=== PATIENT | male | born 1940 | race Caucasian/White ===

== ENCOUNTER 2020-02-25 08:53 | Outpatient (REF) | payer BC, MEDICARE, SELFPAY ==
[2020-02-25 11:51] LABS: Estimated Average Glucose 174 mg/dL; Hemoglobin A1c % 7.7 %
[2020-02-25 12:03] LABS: Alanine Aminotransferase 30 U/L (0-40); Alkaline Phosphatase 57 U/L (39-117); Anion Gap 13 (12-20); Aspartate Amino Transferase 28 U/L (5-37); Bilirubin Total 0.5 mg/dL (0.0-1.0); Blood Urea Nitrogen 21 mg/dL (9-16); Calcium 9.2 mg/dL (8.4-10.2); Carbon Dioxide 26 mmol/L (22-29); Chloride 107 mmol/L (96-108); Cholesterol 124 mg/dL; Estimated Glomerular Filt Rate > 60; Glucose Fasting 169 mg/dL (60-99); HDL Cholesterol 57 mg/dL; LDL Cholesterol Calculated 46 mg/dl; Potassium 4.5 mmol/l (3.3-5.1); Sodium 141 mmol/L (135-145); Total Protein 6.7 g/dL (6.5-8.0); Triglycerides 109 mg/dL
== END 2020-02-25 08:54 | disposition home or self-care (01) ==
LOC: HO.MANLR 08:53
PROVIDERS: PCP Internal Medicine; Visit Provider Internal Medicine
DX: E11.9 Type 2 diabetes mellitus without complications (principal)
CPT/HCPCS: 80053; 80061; 83036

== ENCOUNTER 2020-07-09 07:53 | Outpatient (REF) | payer BC, MEDICARE, SELFPAY ==
[2020-07-09 11:47] LABS: Estimated Average Glucose 157 mg/dL; Hemoglobin A1c % 7.1 %
[2020-07-09 11:51] LABS: Alanine Aminotransferase 29 U/L (0-40); Alkaline Phosphatase 55 U/L (39-117); Anion Gap 13 (12-20); Aspartate Amino Transferase 26 U/L (5-37); Bilirubin Total 1.1 mg/dL (0.0-1.0); Blood Urea Nitrogen 19 mg/dL (9-16); Calcium 9.3 mg/dL (8.4-10.2); Carbon Dioxide 25 mmol/L (22-29); Chloride 104 mmol/L (96-108); Cholesterol 116 mg/dL; Estimated Glomerular Filt Rate > 60; Glucose Fasting 157 mg/dL (60-99); HDL Cholesterol 61 mg/dL; LDL Cholesterol Calculated 34 mg/dl; Potassium 4.5 mmol/L (3.3-5.1); Sodium 137 mmol/L (135-145); Total Protein 6.8 g/dL (6.5-8.0); Triglycerides 105 mg/dL
[2020-07-09 13:39] LABS: Creatinine Urine 141.39 mg/dL; Microalbum/Creatinine Ratio Ur 9.9 ug/mg cr
== END 2020-07-09 07:54 | disposition home or self-care (01) ==
LOC: HO.MANLR 07:53
PROVIDERS: PCP Internal Medicine; Visit Provider Internal Medicine
DX: E11.9 Type 2 diabetes mellitus without complications (principal)
CPT/HCPCS: 36415; 80053; 80061; 82043; 83036

== ENCOUNTER 2020-10-15 09:07 | Outpatient (REF) | payer BC, MEDICARE, SELFPAY ==
[2020-10-15 11:15] LABS: Estimated Average Glucose 163 mg/dL; Hemoglobin A1c % 7.3 %
== END 2020-10-15 09:08 | disposition home or self-care (01) ==
LOC: HO.MANLR 09:07
PROVIDERS: PCP Internal Medicine; Visit Provider Internal Medicine
DX: E11.9 Type 2 diabetes mellitus without complications (principal)
CPT/HCPCS: 36415; 83036

== ENCOUNTER 2021-01-14 08:36 | Outpatient (REF) | payer BC, MEDICARE, SELFPAY ==
[2021-01-14 11:46] LABS: Estimated Average Glucose 166 mg/dL; Hemoglobin A1c % 7.4 %
[2021-01-14 12:06] LABS: Alanine Aminotransferase 24 U/L (0-40); Albumin Level 4.1 g/dL (3.5-5.0); Alkaline Phosphatase 61 U/L (39-117); Anion Gap 13 (12-20); Aspartate Amino Transferase 20 U/L (5-37); Bilirubin Total 1.1 mg/dL (0.0-1.0); Blood Urea Nitrogen 18 mg/dL (9-16); Calcium 9.8 mg/dL (8.4-10.2); Carbon Dioxide 28 mmol/L (22-29); Chloride 105 mmol/L (96-108); Cholesterol 124 mg/dL; Estimated Glomerular Filt Rate > 60; Glucose Fasting 164 mg/dL (60-99); HDL Cholesterol 62 mg/dL; LDL Cholesterol Calculated 38 mg/dl; Potassium 4.7 mmol/L (3.3-5.1); Sodium 141 mmol/L (135-145); Total Protein 6.9 g/dL (6.5-8.0); Triglycerides 123 mg/dL
[2021-01-14 12:14] LABS: Microalbum/Creatinine Ratio Ur 4.6 ug/mg cr
== END 2021-01-14 08:37 | disposition home or self-care (01) ==
LOC: HO.MANLDS 08:36
PROVIDERS: PCP Internal Medicine; Visit Provider Internal Medicine
DX: E11.9 Type 2 diabetes mellitus without complications (principal)
CPT/HCPCS: 36415; 80053; 80061; 82043; 83036

== ENCOUNTER 2021-06-10 11:01 | Outpatient (REF) | payer BC, MEDICARE, SELFPAY ==
[2021-06-10 13:34] LABS: Estimated Average Glucose 171 mg/dL; Hemoglobin A1c % 7.6 %
== END 2021-06-10 11:02 | disposition home or self-care (01) ==
LOC: HO.MANLDS 11:01
PROVIDERS: PCP Internal Medicine; Visit Provider Internal Medicine
DX: E11.9 Type 2 diabetes mellitus without complications (principal)
CPT/HCPCS: 36415; 83036

== ENCOUNTER 2021-11-18 08:39 | Outpatient (REF) | payer BC, MEDICARE, SELFPAY ==
[2021-11-18 11:41] LABS: Estimated Average Glucose 166 mg/dL; Hemoglobin A1c % 7.4 %
[2021-11-18 11:52] LABS: Alanine Aminotransferase 41 U/L (0-40); Albumin Level 3.8 g/dL (3.5-5.0); Alkaline Phosphatase 93 U/L (39-117); Anion Gap 12 (12-20); Aspartate Amino Transferase 32 U/L (5-37); Bilirubin Total 0.8 mg/dL (0.0-1.0); Blood Urea Nitrogen 18 mg/dL (9-16); Calcium 9.2 mg/dL (8.4-10.2); Carbon Dioxide 28 mmol/L (22-29); Chloride 104 mmol/L (96-108); Cholesterol 108 mg/dL; Estimated Glomerular Filt Rate 58; Glucose Random 162 mg/dL (60-115); HDL Cholesterol 49 mg/dL; LDL Cholesterol Calculated 39 mg/dl; Potassium 5.3 mmol/L (3.3-5.1); Sodium 139 mmol/L (135-145); Total Protein 6.7 g/dL (6.5-8.0); Triglycerides 100 mg/dL
[2021-11-18 12:03] LABS: Prostate Specific Antigen 3.54 ng/mL (<0.05-4.0)
[2021-11-18 12:37] LABS: Creatinine Urine 103.88 mg/dL; Microalbum/Creatinine Ratio Ur 5.7 ug/mg cr
== END 2021-11-18 08:40 | disposition home or self-care (01) ==
LOC: HO.MANLDS 08:39
PROVIDERS: Visit Provider Internal Medicine
DX: N40.0 Benign prostatic hyperplasia without lower urinary tract symptoms (principal); E11.9 Type 2 diabetes mellitus without complications; Z12.5 Encounter for screening for malignant neoplasm of prostate
CPT/HCPCS: 36415; 80053; 80061; 82043; 83036; 84153

== ENCOUNTER 2022-04-26 11:22 | Outpatient (REF) | payer BC, MEDICARE, SELFPAY ==
[2022-04-26 14:10] LABS: Estimated Average Glucose 174 mg/dL; Hemoglobin A1c % 7.7 %
[2022-04-26 14:18] LABS: Alanine Aminotransferase 19 U/L (0-40); Albumin Level 3.8 g/dL (3.5-5.0); Alkaline Phosphatase 87 U/L (39-117); Anion Gap 14 (12-20); Aspartate Amino Transferase 18 U/L (5-37); Bilirubin Total 0.7 mg/dL (0.0-1.0); Blood Urea Nitrogen 21 mg/dL (9-16); Calcium 9.8 mg/dL (8.4-10.2); Carbon Dioxide 28 mmol/L (22-29); Chloride 100 mmol/L (96-108); Estimated Glomerular Filt Rate > 60; Glucose Random 243 mg/dL (60-115); Sodium 137 mmol/L (135-145); Total Protein 6.7 g/dL (6.5-8.0)
== END 2022-04-26 11:23 | disposition home or self-care (01) ==
LOC: HO.MANLDS 11:22
PROVIDERS: Visit Provider Internal Medicine
DX: E11.9 Type 2 diabetes mellitus without complications (principal)
CPT/HCPCS: 36415; 80053; 83036

== ENCOUNTER 2022-07-12 08:44 | Outpatient (REF) | payer BC, MEDICARE, SELFPAY ==
[2022-07-12 11:13] LABS: Estimated Average Glucose 177 mg/dL; Hemoglobin A1c % 7.8 %
[2022-07-12 11:43] LABS: Creatinine Urine 140.69 mg/dL; Microalbum/Creatinine Ratio Ur 4.9 ug/mg cr
[2022-07-12 11:45] LABS: Alanine Aminotransferase 32 U/L (0-40); Albumin Level 3.9 g/dL (3.5-5.0); Alkaline Phosphatase 61 U/L (39-117); Anion Gap 12 (12-20); Aspartate Amino Transferase 29 U/L (5-37); Bilirubin Total 0.9 mg/dL (0.0-1.0); Blood Urea Nitrogen 23 mg/dL (9-16); Calcium 9.7 mg/dL (8.4-10.2); Carbon Dioxide 29 mmol/L (22-29); Chloride 104 mmol/L (96-108); Cholesterol 124 mg/dL; Estimated Glomerular Filt Rate > 60; Glucose Fasting 175 mg/dL (60-99); HDL Cholesterol 55 mg/dL; LDL Cholesterol Calculated 48 mg/dl; Potassium 4.4 mmol/L (3.3-5.1); Sodium 141 mmol/L (135-145); Total Protein 6.5 g/dL (6.5-8.0); Triglycerides 108 mg/dL
[2022-07-12 12:15] LABS: Prostate Specific Antigen 3.86 ng/mL (<0.05-4.0)
== END 2022-07-12 08:45 | disposition home or self-care (01) ==
LOC: HO.MANLDS 08:44
PROVIDERS: Visit Provider Internal Medicine
DX: Z12.5 Encounter for screening for malignant neoplasm of prostate (principal); E11.9 Type 2 diabetes mellitus without complications
CPT/HCPCS: 36415; 80053; 80061; 82043; 83036; 84153

== ENCOUNTER 2022-09-22 09:15 | Outpatient (REF) | payer BC, MEDICARE, SELFPAY ==
[2022-09-22 12:41] LABS: Estimated Average Glucose 163 mg/dL; Hemoglobin A1c % 7.3 %
== END 2022-09-22 09:16 | disposition home or self-care (01) ==
LOC: HO.MANLDS 09:15
PROVIDERS: Visit Provider Internal Medicine
DX: E11.9 Type 2 diabetes mellitus without complications (principal)
CPT/HCPCS: 36415; 83036

== ENCOUNTER 2023-01-12 09:04 | Outpatient (REF) | payer BC, MEDICARE, SELFPAY ==
[2023-01-12 13:05] LABS: MANUAL DIFF FLAG NO
[2023-01-12 13:26] LABS: Basophils Percent Auto 1.1 % (0-2); Eosinophils Absolute Auto 0.2 X10*3/uL (0.0-0.4); Eosinophils Percent Auto 5.9 % (0-4); Hematocrit 38.7 % (42.0-52.0); Hemoglobin 12.3 g/dl (14.0-18.0); Imm Gran Abs Auto 0.04 X10*3/uL (0.00-0.03); Imm Gran Pct Auto 1.1 % (0.0-0.4); Lymphocytes Percent Auto 27.8 % (20-40); Mean Corpuscular HGB Conc 31.8 g/dl (31.0-36.0); Mean Corpuscular Hemoglobin 31.5 pg (27.0-33.0); Mean Corpuscular Volume 99.2 fL (80.0-98.0); Mean Platelet Volume 10.2 fL (9.4-12.4); Monocytes Absolute Auto 0.4 X10*3/uL (0.1-1.2); Monocytes Percent Auto 11.3 % (2-11); Neutrophils Percent Auto 52.8 % (45-73); Platelet Count 285 X10*3/uL (160-400); Red Cell Distribution Width 19.9 % (11.0-16.0); White Blood Count 3.7 X10*3/uL (4.8-10.8)
[2023-01-12 13:34] LABS: Estimated Average Glucose 105 mg/dL; Hemoglobin A1c % 5.3 % (<6.0)
[2023-01-12 13:48] LABS: Alanine Aminotransferase 33 U/L (0-40); Albumin Level 3.8 g/dL (3.5-5.0); Alkaline Phosphatase 100 U/L (39-117); Anion Gap 15 (12-20); Aspartate Amino Transferase 29 U/L (5-37); Bilirubin Total 0.8 mg/dL (0.0-1.0); Blood Urea Nitrogen 17 mg/dL (9-16); Calcium 9.7 mg/dL (8.4-10.2); Carbon Dioxide 25 mmol/L (22-29); Chloride 104 mmol/L (96-108); Estimated Glomerular Filt Rate > 60; Glucose Random 276 mg/dL (60-115); Potassium 4.3 mmol/L (3.3-5.1); Sodium 140 mmol/L (135-145); Total Protein 6.9 g/dL (6.5-8.0)
== END 2023-01-12 09:05 | disposition home or self-care (01) ==
LOC: HO.MANLDS 09:04
PROVIDERS: Visit Provider Internal Medicine
DX: B60.01 Babesiosis due to Babesia microti (principal); E11.9 Type 2 diabetes mellitus without complications
CPT/HCPCS: 36415; 80053; 83036; 85025

== ENCOUNTER 2023-04-11 08:34 | Outpatient (REF) | payer BC, MEDICARE, SELFPAY ==
[2023-04-11 14:10] LABS: Estimated Average Glucose 200 mg/dL; Hemoglobin A1c % 8.6 % (<6.0)
[2023-04-11 14:36] LABS: Alanine Aminotransferase 35 U/L (0-40); Albumin Level 3.9 g/dL (3.5-5.0); Alkaline Phosphatase 74 U/L (39-117); Anion Gap 13 (12-20); Aspartate Amino Transferase 39 U/L (5-37); Bilirubin Total 0.9 mg/dL (0.0-1.0); Blood Urea Nitrogen 21 mg/dL (9-16); Calcium 9.8 mg/dL (8.4-10.2); Carbon Dioxide 25 mmol/L (22-29); Chloride 106 mmol/L (96-108); Cholesterol 136 mg/dL (<200); Estimated Glomerular Filt Rate > 60; Glucose Random 163 mg/dL (60-115); HDL Cholesterol 60 mg/dL (>40); LDL Cholesterol Calculated 54 mg/dL (<100); Potassium 3.9 mmol/L (3.3-5.1); Sodium 140 mmol/L (135-145); Triglycerides 110 mg/dL (<150)
== END 2023-04-11 08:35 | disposition home or self-care (01) ==
LOC: HO.MANLDS 08:34
PROVIDERS: Visit Provider Internal Medicine
DX: E11.9 Type 2 diabetes mellitus without complications (principal)
CPT/HCPCS: 36415; 80053; 80061; 83036

== ENCOUNTER 2023-08-01 08:54 | Outpatient (REF) | payer BC, MEDICARE, SELFPAY ==
[2023-08-01 13:48] LABS: Estimated Average Glucose 183 mg/dL
[2023-08-01 14:32] LABS: Alanine Aminotransferase 32 U/L (0-40); Albumin Level 3.9 g/dL (3.5-5.0); Alkaline Phosphatase 69 U/L (39-117); Anion Gap 12 (12-20); Aspartate Amino Transferase 28 U/L (5-37); Bilirubin Total 0.8 mg/dL (0.0-1.0); Blood Urea Nitrogen 20 mg/dL (9-16); Calcium 9.6 mg/dL (8.4-10.2); Carbon Dioxide 27 mmol/L (22-29); Chloride 105 mmol/L (96-108); Cholesterol 132 mg/dL (<200); Estimated Glomerular Filt Rate > 60; Glucose Random 187 mg/dL (60-115); HDL Cholesterol 60 mg/dL (>40); LDL Cholesterol Calculated 50 mg/dL (<100); Potassium 3.9 mmol/L (3.3-5.1); Sodium 140 mmol/L (135-145); Total Protein 6.7 g/dL (6.5-8.0); Triglycerides 114 mg/dL (<150)
== END 2023-08-01 08:55 | disposition home or self-care (01) ==
LOC: HO.MANLDS 08:54
PROVIDERS: Visit Provider Internal Medicine
DX: E11.9 Type 2 diabetes mellitus without complications (principal)
CPT/HCPCS: 36415; 80053; 80061; 83036

== ENCOUNTER 2023-10-19 08:40 | Outpatient (REF) | payer BC, MEDICARE, SELFPAY ==
[2023-10-19 13:50] LABS: Estimated Average Glucose 200 mg/dL; Hemoglobin A1c % 8.6 % (<6.0)
== END 2023-10-19 08:41 | disposition home or self-care (01) ==
LOC: HO.MANLDS 08:40
PROVIDERS: Visit Provider Internal Medicine
DX: E11.9 Type 2 diabetes mellitus without complications (principal)
CPT/HCPCS: 36415; 83036

== ENCOUNTER 2024-03-13 09:40 | Outpatient (REF) | payer BC, MEDICARE, SELFPAY ==
[2024-03-13 13:58] LABS: Estimated Average Glucose 186 mg/dL; Hemoglobin A1C 237.1569 umol/L; Hemoglobin A1c % 8.1 % (<6.0); Total Hemoglobin (HGBA1C) 3633.1273 umol/L
== END 2024-03-13 09:41 | disposition home or self-care (01) ==
LOC: HO.MANLDS 09:40
PROVIDERS: Visit Provider Internal Medicine
DX: E11.9 Type 2 diabetes mellitus without complications (principal)
CPT/HCPCS: 36415; 83036

== ENCOUNTER 2024-08-29 11:51 | Outpatient (REF) | payer BC, MEDICARE, SELFPAY ==
[2024-08-29 13:51] LABS: Estimated Average Glucose 209 mg/dL; Hemoglobin A1C 291.1274 umol/L; Hemoglobin A1c % 8.9 % (<6.0); Total Hemoglobin (HGBA1C) 3950.9875 umol/L
--- OUTSIDE RECORDS SUMMARY | 2024-08-29 14:20 | XMS_ITS | Clinical Summary ---
Author Organization [facility] ity Address [address] [place] [address] Care Team Providers Care Check Inspector Name Role Phone Samson Trinidad DO Primary Care Provider [phone] Medications isosorbide mononitrate (IMDUR) 30 mg 24 hr tablet Take 1 tablet (30 mg total) by mouth 1 (one) time each day. 90 tablet 2 07/27/2024 Active Encounters Date Type Department Care Team Description 07/27/2024 Telephone [facility] [address] [place] [address] Ben Lucero MD refill isosorbide (Refill isosorbide) from Last 3 Months Medical History Medical History Date Comments Multiple actinic keratoses DX:Mu ltiple actinic keratoses Vertigo DX:Vertigo History of tobacco use DX:Histor y of tobacco use BPH (benign prostatic hyperplasia) DX:BPH (benign prostatic hyperplasia) Ulcer of toe (CMS/HCC V24, CMS/HCC V28) DX:Ulcer of toe (HCC) Eczema DX:Eczema Type 2 diabetes mellitus (CM S/HCC V24, CMS/HCC V28) DX:Type 2 diabetes mellitus (HCC) Primary erectile dysfunction DX: Primary erectile dysfunction Family History Medical History Relation Name Comments CABG Brother Relation Name Status Comments Brother Social History Tobacco Use Types Packs/Day Years Used Date Smoking Tobacco: Former Smokeless Tobacco: Never Alcohol Use Standard Drinks/Week Comments Yes 0 (1 standard drink = 0.6 oz pur e alcohol) Sex and Gender Information Value Date Recorded Sex Assigned at Not on file Legal Sex Male 7:46 AM EST Gender Identity Not on file Sexual Orientation Not on file Obstetrics History Last Filed Vital Signs Vital Sign Reading Time Taken Comments Blood Pressure 102/62 02/07/2024 1:29 PM EDT Sitting L Arm Pulse 47 02/07/2024 1:29 PM EDT Temperature - - Respiratory Rate - - Oxygen Saturation - - Inhaled Oxygen Concentration - - Weight 102 kg (224 lb 8 oz) 02/07/2024 1:29 PM EDT Height 190.5 cm (6' 3 ) 02/07/2024 1:29 PM EDT Body Mass Index 28.06 02/07/2024 1:29 PM EDT Plan of Treatment Upcoming Encounters Date Type Department Care Team (Late st Contact Info) Description 02/26/2025 1:30 PM EDT Office Visit [facility] [address] [facility] [address] [place] [id number] Ben Lucero MD [address] [place] [address],[address] [place] [address] Health Maintenance Due Date Last Done Comments COVID-19 Vaccine (#1) 07/29/1945 DTaP,Tdap,and Td Vaccines (1 - Tdap) 1961 Zoster Vaccines (1 of 2) 1992 RSV Immunization Adult Patients (1 - 1-dose 75+ series) 2017 Pneumococcal Vaccine: 50+ Years (2 of 2 - PCV) 02/03/2018 02/03/2017 Cholesterol Screening (Lipid Panel) 04/18/2022 Depression Screening 04/18/2022 Falls Risk Assessment 04/18/2022 Medicare Annual Wellness Visit 04/18/2022 Social Influencers of Health Screening 04/18/2022 Hypertension/CHF/CAD Annual BMP Blood Test 04/22/2022 Influenza Vaccine (Season Ended) 2025 05/07/2021, 01/27/2019, 02/03/2017 HIB Vaccines Aged Out No longer eligi ble based on patient's age to complete this topic HPV Vaccines Aged Out No longer eligi ble based on patient's age to complete this topic Hepatitis A Vaccines Aged Out No long er eligible based on patient's age to complete this topic Hepatitis B Vaccines Aged Out No long er eligible based on patient's age to complete this topic IPV Vaccines Aged Out No longer eligi ble based on patient's age to complete this topic MMR Vaccines Aged Out No longer eligi ble based on patient's age to complete this topic Meningococcal ACWY Vaccine Aged Out N o longer eligible based on patient's age to complete this topic Meningococcal B Vaccine Aged Out No l onger eligible based on patient's age to complete this topic RSV Immunization Patients Under 20 months Aged Out No longer eligible b ased on patient's age to complete this topic Varicella Vaccines Aged Out No longer eligible based on patient's age to complete this topic Insurance MEDICARE Care Teams Check Inspector Relationship Specialty Start Date End Date Samson Trinidad DO [address] [facility] [address] [place], [place] PCP - General 05/31/13
--- OUTSIDE RECORDS SUMMARY | 2024-08-29 14:21 | XMS_ITS | Data Portability ---
Author Organization [facility], , [facility] Address [address] [place] [address] Care Team Providers Care Singing Messenger Name Role Phone SOPHIE ALEMAN MD OTHER [phone] SOPHIE BETHEA OTHER Assessment Encounter Date Assessment Date Assessment LastModified by Organization Details LastModified Time 10/31/2008 10/31/2008 LDL not at goal of less than 100, declines treatment Not available 12/07/2010 03:15:02 11/04/2008 11/04/2008 Study: Abdominal aorta screening ultrasound Comparison: None Findings: The abdominal aorta is non-aneurysma l, maximum cross-section al diameters tapering from? ? ? 2.4? ? ?cm proximally to 1.8 cm distally. Impression: Non-aneurysma l abdominal aorta. Not available 01/20/2011 02:20:11 Plan of Treatment Reminders Order Date Submit Date Provider Last Modified By Organization Details Last Modified Time Details Appointments None recorded. Lab PSA, total 2008 009 [facility], [address] [place] [address], [address], 3 03:26:39 CBC 2008 009 [facility], [address] [place] [address], [address], 3 03:26:40 Referral None recorded. Procedures None recorded. Surgeries None recorded. Imaging electrocard iogram 2008 009 [facility], [address] [place] [address], [address], 3 03:26:39 ultrasound, abdominal aorta - screening 2008 009 [facility], [address] [place], [address], 3 03:26:39 ultrasound, leg - r/o DVT 2008 009 [facility], [address] [place], [address], 3 03:17:32 Medication Orders aspirin 81 mg tablet 2008 009 [id number], [address] [place], [place], [phone], 3 03:26:40 Cialis 20 mg tablet 2008 009 [id number], [address], [place], [phone], 3 03:26:40 Patient TargetsNo targets recorded. Patient Instructions Encounter Date Encounter Id Patient Instructions Last Modified By Organization Details Last Modified Time 08/08/2008 [id number] Not available 12/07/2010 03:06:54 10/31/2008 [id number] [email or web address] [id number] Not available 12/07/2010 02:52:03 Reason for Referral None Reported. Results Created Date Observation Date Name Description Value Unit Range Abnormal Flag Note LastModifiedBy Organization Detail LastModifiedTime 11/01/1910/31/2008 elect marco diogr am Result Sinus bradyc ardia, WNL Not Available [address], [address], 10/31/2008 10:21:14 07/16/19 09 07/15/2008 hemog lobin A1C w/ mpg hemoglobin A1C 6.9 % 4.8-6. 0 high goal: <7% in patie nts with diabe rahul Not Available [address], [address], 07/15/2008 11:56:19 07/16/19 09 07/15/2008 hemog lobin A1C w/ mpg estimated average glucose 151.3 mg/dL Not Available [address], [address], 07/15/2008 11:56:19 07/16/19 09 07/15/2008 lipid panel cholesterol 231 mg/dL <200 mg/dL doc eable 200-2 39 mg/dL borde rline high >240 mg/dL high Not Available [address], [address], 07/15/2008 12:52:54 07/16/19 09 07/15/2008 lipid panel triglyceride s 329 mg/dL <150 mg/dL izzy l 150-1 99 mg/dL borde rline high 200-4 99 mg/dL high >500 mg/dL very high Not Available [address], [address], 07/15/2008 12:52:54 07/16/19 09 07/15/2008 lipid panel direct HDL 48 mg/dL <40 mg/dL - major risk for CHD >60 mg/dL - negat alberto risk for CHD Not Available [address], [address], 07/15/2008 12:52:54 07/16/19 09 07/15/2008 lipid panel direct LDL 137 mg/dL risk categ ory LDL goal _ CHD or CHD risk equiv alent s <100 mg/dL (10-y ear risk >20%) 2+ risk facto rs <130 mg/dL (10-y ear risk <= 20%) 0-1 risk facto r? <160 mg/dL ? almos t all peopl e with 0-1 risk facto r have A 10 year risk <10%, thus 10 year risk asses ment in peopl e with 0-1 risk facto r IS not neces elisabet. Not Available [address], [address], 07/15/2008 12:52:54 10/23/19 09 10/22/2008 hemog lobin A1C w/ mpg hemoglobin A1C 6.8 % 4.8-6. 0 high goal: <7% in patie nts with diabe rahul Not Available [address], [address], 10/22/2008 11:56:55 10/23/19 09 10/22/2008 hemog lobin A1C w/ mpg estimated average glucose 148.5 mg/dL Not Available [address], [address], 10/22/2008 11:56:55 10/23/19 09 10/22/2008 lipid panel cholesterol 220 mg/dL <200 mg/dL doc eable 200-2 39 mg/dL borde rline high >240 mg/dL high Not Available [address], [address], 10/22/2008 12:20:03 10/23/19 09 10/22/2008 lipid panel triglyceride s 314 mg/dL <150 mg/dL izzy l 150-1 99 mg/dL borde rline high 200-4 99 mg/dL high >500 mg/dL very high Not Available [address], [address], 10/22/2008 12:20:03 10/23/19 09 10/22/2008 lipid panel direct HDL 50 mg/dL <40 mg/dL - major risk for CHD >60 mg/dL - negat alberto risk for CHD Not Available [address], [address], 10/22/2008 12:20:03 10/23/19 09 10/22/2008 lipid panel direct LDL 128 mg/dL risk categ ory LDL goal _ CHD or CHD risk equiv alent s <100 mg/dL (10-y ear risk >20%) 2+ risk facto rs <130 mg/dL (10-y ear risk <= 20%) 0-1 risk facto r? <160 mg/dL ? almos t all peopl e with 0-1 risk facto r have A 10 year risk <10%, thus 10 year risk asses ment in peopl e with 0-1 risk facto r IS not dom bhandari. Not Available [address], [address], 10/22/2008 12:20:03 10/23/19 09 10/22/2008 basic metab olic panel glucose 143 mg/dL 70-100 high clini avel refer ence range s fasti ng gluco se <100 mg/dL = izzy l fasti ng gluco se; 100-1 25 mg/dL = ifg (impa ired fasti ng gluco se); >126 mg/dL = provi siona l diagn osis of diabe rahul (conf irm by repea t testi ng on A .) Not Available [address], [address], 10/22/2008 12:20:04 10/23/19 09 10/22/2008 basic metab olic panel BUN 16 mg/dL 7-18 Not Available [address], [address], 10/22/2008 12:20:04 10/23/19 09 10/22/2008 basic metab olic panel creatinine 1.1 mg/dL 0.8-1. 3 Not Available [address], [address], 10/22/2008 12:20:04 10/23/19 09 10/22/2008 basic metab olic panel B/C 14.5 ratio Not Available [address], [address], 10/22/2008 12:20:04 10/23/19 09 10/22/2008 basic metab olic panel GFR 71.2 mL/mi n recom torey d GFR by the natio nal kidne y found ation >60 mL/mi n/1.7 3M2 - izzy l <60 mL/mi n/1.7 3M2 - chron ic kidne y disea se <15 mL/mi n/1.7 3M2 - kidne y failu re Not Available [address], [address], 10/22/2008 12:20:04 10/23/19 09 10/22/2008 basic metab olic panel GFR - if 86.1 mL/mi n for afric an ameri can patie nts: resul ts multi plied by 1.21 Not Available [address], [address], 10/22/2008 12:20:04 10/23/19 09 10/22/2008 basic metab olic panel sodium 142 mmol/ L 136-14 5 Not Available [address], [address], 10/22/2008 12:20:04 10/23/19 09 10/22/2008 basic metab olic panel potassium 4.6 mmol/ L 3.5-5. 1 Not Available [address], [address], 10/22/2008 12:20:04 10/23/19 09 10/22/2008 basic metab olic panel chloride 103 mmol/ L 96-107 Not Available [address], [address], 10/22/2008 12:20:04 10/23/19 09 10/22/2008 basic metab olic panel _anion gap 12.0 Not Available [address], [address], 10/22/2008 12:20:04 10/23/19 09 10/22/2008 basic metab olic panel CO2 27 mmol/ L 21-32 Not Available [address], [address], 10/22/2008 12:20:04 10/23/19 09 10/22/2008 basic metab olic panel calcium 8.8 mg/dL 8.5-10 .3 Not Available [address], [address], 10/22/2008 12:20:04 10/23/19 09 10/22/2008 micro album in, rando m urine microalbumin 6.8 mg/L 1.3-20 .0 Not Available [address], [address], 10/22/2008 13:54:57 10/23/19 09 10/22/2008 micro album in, rando m urine creatinine, urine 137.2 mg/dL 30.0-1 25.0 high Not Available [address], [address], 10/22/2008 13:54:57 10/23/19 09 10/22/2008 micro album in, rando m urine microalb/cre at ratio 5.0 mg/g_ creat 0.0-29 .0 Not Available [address], [address], 10/22/2008 13:54:57 12/18/19 09 12/18/2008 CBC WBC 4.6 K/?L 4.6-10 .2 Not Available [address], [address], 12/18/2008 08:44:34 12/18/19 09 12/18/2008 CBC lymph # 1.7 K/?L 0.6-3. 4 Not Available [address], [address], 12/18/2008 08:44:34 12/18/19 09 12/18/2008 CBC mid # 0.5 K/?L 0.0-1. 8 Not Available [address], [address], 12/18/2008 08:44:34 12/18/1912/18/2008 CBC gran # 2.5 K/?L 2.0-6. 9 Not Available [address], [address], 12/18/2008 08:44:34 12/18/1912/18/2008 CBC lymph % 36.3 % 10.0-5 0.0 Not Available [address], [address], 12/18/2008 08:44:34 12/18/1912/18/2008 CBC mid % 10.4 % 0.1-24 .0 Not Available [address], [address], 12/18/2008 08:44:34 12/18/1912/18/2008 CBC gran % 53.3 % 37.0-8 0.0 Not Available [address], [address], 12/18/2008 08:44:34 12/18/1912/18/2008 CBC RBC 4.69 M/?L 4.69-6 .13 Not Available [address], [address], 12/18/2008 08:44:34 12/18/1912/18/2008 CBC HGB 15.0 g/dL 14.1-1 8.1 Not Available [address], [address], 12/18/2008 08:44:34 12/18/1912/18/2008 CBC HCT 43.4 % 43.5-5 3.7 low Not Available [address], [address], 12/18/2008 08:44:34 12/18/1912/18/2008 CBC MCV 92.5 ?L 80.0-9 7.0 Not Available [address], [address], 12/18/2008 08:44:34 12/18/19 09 12/18/2008 CBC MCH 32.0 pg 27.0-3 1.2 high Not Available [address], [address], 12/18/2008 08:44:34 12/18/19 09 12/18/2008 CBC MCHC 34.6 g/dL 31.8-3 5.4 Not Available [address], [address], 12/18/2008 08:44:34 12/18/19 09 12/18/2008 CBC plt 214.0 K/?L 142.0- 424.0 Not Available [address], [address], 12/18/2008 08:44:34 12/18/19 09 12/18/2008 CBC RDW 14.3 % 11.6-1 4.8 Not Available [address], [address], 12/18/2008 08:44:34 12/18/19 09 12/18/2008 CBC _MPV 0.0 Not Available [address], [address], 12/18/2008 08:44:34 12/18/19 09 12/20/2008 PSA, total PSA 4.67 NG/mL 0.00-4 .00 high Not Available [address], [address], 12/20/2008 07:19:41 08/10/19 09 08/08/2008 ultra sound , leg No observ ation record ed. [address], [address], 12/01/2012 03:17:40 11/06/19 09 11/04/2008 ultra sound , abdom inal aorta No observ ation record ed. [address], [address], 12/01/2012 03:27:05 Result Notes None recorded. Problems Name Problem SNOMED Code Status Onset Date Resolution Date Notes Provider Name and Address Organization Details Recorded Time Mixed hyperlipid emia 823218378 Active 2001 Not Available [facility] 3 03:08:44 Impotence of organic origin Active 2007 Not Available [facility] 3 03:08:44 Edema of extremity 213519958 Completed 03/28/2013 Not Available [facility] 3 02:02:54 Contusion, knee and lower leg 668259276 Active Not Available [facility] 3 03:08:44 Type 2 diabetes mellitus without complicati on 728573798 Active 2000 Not Available [facility] 3 03:08:44 Elevated blood-pres sure reading without diagnosis of hypertensi on 310296267 Active 2002 Not Available [facility] 3 03:08:44 Morbid obesity 912526143 Active 2000 Not Available [facility] 3 03:08:44 Uncontroll ed type 2 diabetes mellitus 559025112 Active 2004 Not Available [facility] 3 03:08:44 Hyperlipid emia 65784391 Active 2006 Not Available [facility] 3 03:08:44 Benign prostatic hyperplasi a 920141492 Active 2007 Not Available [facility] 3 03:08:44 Problem Notes None recorded. Procedures Surgical History None recorded. Imaging Results Imaging Date Name Status LastModified by Organiz ation Details LastModified Time 08/08/2008 ultrasound, leg completed [facility] [address] [place], [address], 12/01/2012 03:17:40 11/04/2008 ultrasound, abdominal aorta completed [address] [place], [address], 12/01/2012 03:27:05 Procedure Notes None recorded. Medical Equipment None Reported. Allergies No known drug allergies Medications Name Sig Start Date Stop Date Status Note LastModified by Organization Details LastModified Time lancets 007 active Take 1.00 ea as directed Not Available Not Available Not Available aspirin 81 mg tablet Take 1 tablet every day by oral route. 009 active Not Available Not Available Not Avai lable Baby Aspirin 81 mg chewable tablet 007 active Take 1.00 tabs every day Not Available Not Available Not Available One Touch Test strips 007 active Take 1.00 strips as directed as needed Not Available Not Available Not Available Fish Oil 500 mg capsule 007 active Take 1.00 caps every day Not Available Not Available Not Available Centrum 0.4 mg-162 mg-18 mg tablet 007 active Take 1.00 tabs every day Not Available Not Available Not Available Cialis 20 mg tablet Take 1 tablet every day by oral route as directed . 009 active Not Available Not Available Not Avai lable Vitals Date Recorded Body weight Heart rate Systolic blood pressure Diastolic blood pressure Provider Name and Address Organization Details Last Updated DateTime 08/08/2008 456992.60 857 g 76 /min 96 mm[Hg] 64 mm[Hg] Rita Liu CMA(AAMA) [facility] 08/08/2008 14:39:24 Date Recorded Body height Body weight Body mass index (BMI) Heart rate Systolic blood pressure Diastolic blood pressure Provider Name and Address Organization Details Last Updated DateTime 9 187.96 cm 770738. 776534 g 33.1 kg/m2 76 /min 138 mm[Hg] 70 mm[Hg] Emelia Turcios LPN [facility] 9 10:27:36 Social History Question Answer Notes LastModified by Organizat ion Details LastModified Time Tobacco Smoking Status Former Smoker QUIT 10 YRS AGO SMOKED 1 PPD Not Available [facility] 10/01/2010 02:07:41 Do You Have An Advance Directive? Yes Information not available 03/25/2011 Sex: Unknown Functional Status None recorded. Mental Status None recorded. Family History Nothing Reported Notes:Father: 91 old ag e Brother: DM, Etoh Dtr: crohn's : Medical History No medical history recorded. Immunizations Vaccine Type Date Status Note Provider Nam e and Address Organization Details Recorded Time influenza, unspecified formulation 1 completed Not Available [facility] 03/24/2011 05:20:34 influenza, unspecified formulation 4 completed Not Available [facility] 03/24/2011 05:21:07 influenza, unspecified formulation 5 completed Not Available [facility] 03/24/2011 05:23:04 Tdap 7 completed Not Available [facility] 03/24/2011 05:23:04 pneumococcal polysaccharide PPV23 8 completed Not Available [facility] 03/24/2011 05:21:55 influenza, unspecified formulation 8 completed Not Available [facility] 03/24/2011 05:22:13 Past Encounters Encounter ID Performer Location Encounter Start Date Encounter Closed Date Diagnosis/Indication Diagnosis SNOMED-CT Code Diagnosis ICD10 Code Diagnosis Note [id number] [facility], OFFICE [address] [place] [address] 02/01/2001 11:00:00 05/29/2008 02:02:29 [id number] [facility], OFFICE [address] [place] [address] 02/09/2001 10:15:00 05/29/2008 02:02:29 [id number] [facility], OFFICE [address] [place] [address] 03/24/2001 09:45:00 05/29/2008 02:02:29 [id number] [facility], OFFICE [address] [place] [address] 04/26/2002 11:08:09 05/29/2008 02:02:29 [id number] [facility], OFFICE [address] [place] [address] [place] [address] 10/16/2002 16:35:33 05/29/2008 02:02:29 [id number] [facility], OFFICE [address] [place] [address] 06/12/2003 10:03:19 06/13/2003 16:09:07 [id number] [facility], OFFICE [address] [place] [address] 12/25/2003 10:57:11 12/27/2003 17:37:25 [id number] [facility], OFFICE [address] [place] [address] 03/05/2004 16:32:24 03/05/2004 16:32:29 [id number] [facility], OFFICE [address] [place] [address] 07/31/2004 13:28:21 08/03/2004 09:21:01 [id number] [facility], OFFICE [address] [place] [address] 02/26/2005 11:35:11 03/02/2005 09:35:38 [id number] [facility], OFFICE [address] [place] [address] 08/17/2005 16:05:05 08/18/2005 15:12:46 [id number] [facility], OFFICE [address] [place] [address] 12/16/2005 11:40:55 12/17/2005 09:22:04 [id number] [facility], OFFICE [address] [place] [address] 09/14/2006 11:23:13 09/15/2006 07:41:34 [id number] [facility] - [facility] [address] [place] [address] [place] [address] 03/27/2007 09:01:50 03/27/2007 09:02:02 [id number] [facility], OFFICE [address] [place] [address] [place] [address] 04/18/2007 11:30:34 05/29/2008 02:02:29 [id number] [facility] [address] [place] [address] [place] [address] 05/16/2007 13:58:16 05/16/2007 14:07:12 [id number] [facility] [address] [place] [address] [place] [facility] [place] [address] 09/14/2007 07:46:30 09/14/2007 07:58:40 [id number] [facility], OFFICE [address] [place] [address] [place] [address] 09/26/2007 09:30:54 05/29/2008 02:02:29 [id number] LAB - [facility] [address] [facility] [place] [facility] [place] [address] 03/13/2008 08:38:43 03/13/2008 08:39:52 [id number] , [facility], OFFICE [address] [facility] [place] [facility] [place] [address] 03/28/2008 08:56:39 05/29/2008 02:02:29 [id number] [facility], OFFICE [address] [facility] [place] [facility] [place] [address] 08/08/2008 14:31:17 08/15/2008 08:51:03 [id number] Radiology , [facility] [address] [place] [address] 08/08/2008 15:38:22 08/09/2008 14:14:52 [id number] , [facility], OFFICE [address] [place] [address] [place] [facility] [place] [address] 10/31/2008 09:35:06 11/07/2008 08:53:05 [id number] Radiology , [facility] [address] [place] [address] 11/04/2008 09:42:24 11/07/2008 07:52:56 [id number] [facility] - [address] [place] [facility] [place] [address] 07/15/2008 08:37:32 07/15/2008 08:38:46 [id number] [facility] - [address] [place] [facility] [place] [address] 10/22/2008 07:19:06 10/22/2008 07:27:31 [id number] [facility] - [address] [place] [facility] [place] [address] 12/17/2008 14:24:52 12/17/2008 14:35:26 Health Concerns Section Related Observation LastModified by Organization Detai ls LastModified Time None Recorded Concern Status LastModified by Organization Details LastModified Time None Recorded Advance Directives Directive Y: Payers Encounter Date Sequence Insurance Name Policy Number Policy Anne Covered Member ID Anne Member ID Guarantor Name 08/08/2008 1 [place]: [employer] Bryson Hernandez [id number] Bryson Hernandez 10/22/2008 1 MEDICARE [place]: [facility] [employer] Bryson Hernandez [id number] Bryson Hernandez 10/31/2008 1 [place]: [employer] Bryson Hernandez [id number] Bryson Hernandez 11/04/2008 1 [place] [facility] GOVERNMENT SERVICES Bryson Hernandez [id number] Bryson Hernandez 12/17/2008 1 [place] [facility] GOVERNMENT SERVICES Bryson Hernandez [id number] Bryson Hernandez
== END 2024-08-29 11:52 | disposition home or self-care (01) ==
LOC: HO.MANLDS 11:51
PROVIDERS: Visit Provider Internal Medicine
DX: E11.9 Type 2 diabetes mellitus without complications (principal)
CPT/HCPCS: 36415; 83036

== ENCOUNTER 2024-09-04 08:19 | Outpatient (REF) | payer BC, MEDICARE, SELFPAY ==
--- OUTSIDE RECORDS SUMMARY | 2024-09-04 08:34 | XMS_ITS | Clinical Summary ---
Author Organization [facility] ity Address [address] [place] [address] Care Team Providers Care Supervisor [employer] Name Role Phone Samson Trinidad DO Primary Care Provider [phone] Medications isosorbide mononitrate (IMDUR) 30 mg 24 hr tablet Take 1 tablet (30 mg total) by mouth 1 (one) time each day. 90 tablet 2 07/27/2024 Active Encounters Date Type Department Care Team Description 07/27/2024 Telephone [facility] [address] [place] [address] Ben Lucero MD refill isosorbide [...] Description 02/26/2025 1:30 PM EDT Office Visit [facility] [address] [place] [id number] Ben Lucero MD [address] [place] [address],[address] [place] [address] Health Maintenance Due Date Last Done Comments [...] complete this topic Insurance MEDICARE Care Teams Supervisor [employer] Relationship Specialty Start Date End Date Samson Trinidad DO [address] [facility] [address] [place], [place] PCP - General 05/31/13
--- OUTSIDE RECORDS SUMMARY | 2024-09-04 08:34 | XMS_ITS | Data Portability ---
Author Organization [facility] Home Service Address [address] [place] [address] Assessment Encounter Date Assessment Date Assessment LastModified by Organization Details LastModified Time 04/20/2023 04/20/2023 [id number] [place] [id number] (INSEAMER) [facility] MODERATE MUST MEET 2 OUT OF 3 ELEMENTS: PROBLEMS, DATA OR RISK ELEMENT 1: PROBLEMS ADDRESSED 1 OR MORE CHRONIC ILLNESS WITH EXACERBATION OR 2 OR MORE STABLE CHRONIC ILLNESSES OR 1 UNDIAGNOSED NEW PROBLEM OR 1 ACUTE ILLNESS W/SYMPTOMS OR 1 ACUTE COMPLICATED INJURY ELEMENT 2: DATA MUST MEET 1 OF 3 CATEGORIES CATEGORY 1: REVIEW OF PRIOR EXTERNAL NOTES, REVIEW OF RESULTS, ORDERING OF EACH TEST, ASSESSMENT REQUIRING INDEPENDENT HISTORIAN OR CATEGORY 2: INDEPENDENT INTERPRETATION OF TESTS BY ANOTHER PHYSICIAN OR SPECIALIST OR CATEGORY 3: DISCUSSION OF MGT OR TEST INTERPRETATION W/EXTERNAL PHYSICIAN OR SPECIALIST ELEMENT 3: RISK RISK OF COMPLICATIONS AND/OR MORBIDITY OR MORTALITY OF PATIENT MANAGEMENT PROVIDER MUST THOROUGHLY DOCUMENT EACH ELEMENT THAT IS COVERED Not available 04/20/2023 11:45:51 08/03/2023 08/03/2023 [id number] [place] [id number] (INSEAMER) [facility] MODERATE MUST MEET 2 OUT OF 3 ELEMENTS: PROBLEMS, DATA OR RISK ELEMENT 1: PROBLEMS ADDRESSED 1 OR MORE CHRONIC ILLNESS WITH EXACERBATION OR 2 OR MORE STABLE CHRONIC ILLNESSES OR 1 UNDIAGNOSED NEW PROBLEM OR 1 ACUTE ILLNESS W/SYMPTOMS OR 1 ACUTE COMPLICATED INJURY ELEMENT 2: DATA MUST MEET 1 OF 3 CATEGORIES CATEGORY 1: REVIEW OF PRIOR EXTERNAL NOTES, REVIEW OF RESULTS, ORDERING OF EACH TEST, ASSESSMENT REQUIRING INDEPENDENT HISTORIAN OR CATEGORY 2: INDEPENDENT INTERPRETATION OF TESTS BY ANOTHER PHYSICIAN OR SPECIALIST OR CATEGORY 3: DISCUSSION OF MGT OR TEST INTERPRETATION W/EXTERNAL PHYSICIAN OR SPECIALIST ELEMENT 3: RISK RISK OF COMPLICATIONS AND/OR MORBIDITY OR MORTALITY OF PATIENT MANAGEMENT PROVIDER MUST THOROUGHLY DOCUMENT EACH ELEMENT THAT IS COVERED Not available 08/03/2023 12:01:58 10/19/2023 10/19/2023 [id number] [place] [id number] (INSEAMER) [facility] MODERATE MUST MEET 2 OUT OF 3 ELEMENTS: PROBLEMS, DATA OR RISK ELEMENT 1: PROBLEMS ADDRESSED 1 OR MORE CHRONIC ILLNESS WITH EXACERBATION OR 2 OR MORE STABLE CHRONIC ILLNESSES OR 1 UNDIAGNOSED NEW PROBLEM OR 1 ACUTE ILLNESS W/SYMPTOMS OR 1 ACUTE COMPLICATED INJURY ELEMENT 2: DATA MUST MEET 1 OF 3 CATEGORIES CATEGORY 1: REVIEW OF PRIOR EXTERNAL NOTES, REVIEW OF RESULTS, ORDERING OF EACH TEST, ASSESSMENT REQUIRING INDEPENDENT HISTORIAN OR CATEGORY 2: INDEPENDENT INTERPRETATION OF TESTS BY ANOTHER PHYSICIAN OR SPECIALIST OR CATEGORY 3: DISCUSSION OF MGT OR TEST INTERPRETATION W/EXTERNAL PHYSICIAN OR SPECIALIST ELEMENT 3: RISK RISK OF COMPLICATIONS AND/OR MORBIDITY OR MORTALITY OF PATIENT MANAGEMENT PROVIDER MUST THOROUGHLY DOCUMENT EACH ELEMENT THAT IS COVERED Not available 10/19/2023 10:42:56 01/31/2024 01/31/2024 [id number] [place] [id number] (INSEAMER) [facility] MODERATE MUST MEET 2 OUT OF 3 ELEMENTS: PROBLEMS, DATA OR RISK ELEMENT 1: PROBLEMS ADDRESSED 1 OR MORE CHRONIC ILLNESS WITH EXACERBATION OR 2 OR MORE STABLE CHRONIC ILLNESSES OR 1 UNDIAGNOSED NEW PROBLEM OR 1 ACUTE ILLNESS W/SYMPTOMS OR 1 ACUTE COMPLICATED INJURY ELEMENT 2: DATA MUST MEET 1 OF 3 CATEGORIES CATEGORY 1: REVIEW OF PRIOR EXTERNAL NOTES, REVIEW OF RESULTS, ORDERING OF EACH TEST, ASSESSMENT REQUIRING INDEPENDENT HISTORIAN OR CATEGORY 2: INDEPENDENT INTERPRETATION OF TESTS BY ANOTHER PHYSICIAN OR SPECIALIST OR CATEGORY 3: DISCUSSION OF MGT OR TEST INTERPRETATION W/EXTERNAL PHYSICIAN OR SPECIALIST ELEMENT 3: RISK RISK OF COMPLICATIONS AND/OR MORBIDITY OR MORTALITY OF PATIENT MANAGEMENT PROVIDER MUST THOROUGHLY DOCUMENT EACH ELEMENT THAT IS COVERED Not available 01/31/2024 14:44:40 05/30/2024 05/30/2024 [id number] [place] [id number] (INSEAMER) [facility] MODERATE MUST MEET 2 OUT OF 3 ELEMENTS: PROBLEMS, DATA OR RISK ELEMENT 1: PROBLEMS ADDRESSED 1 OR MORE CHRONIC ILLNESS WITH EXACERBATION OR 2 OR MORE STABLE CHRONIC ILLNESSES OR 1 UNDIAGNOSED NEW PROBLEM OR 1 ACUTE ILLNESS W/SYMPTOMS OR 1 ACUTE COMPLICATED INJURY ELEMENT 2: DATA MUST MEET 1 OF 3 CATEGORIES CATEGORY 1: REVIEW OF PRIOR EXTERNAL NOTES, REVIEW OF RESULTS, ORDERING OF EACH TEST, ASSESSMENT REQUIRING INDEPENDENT HISTORIAN OR CATEGORY 2: INDEPENDENT INTERPRETATION OF TESTS BY ANOTHER PHYSICIAN OR SPECIALIST OR CATEGORY 3: DISCUSSION OF MGT OR TEST INTERPRETATION W/EXTERNAL PHYSICIAN OR SPECIALIST ELEMENT 3: RISK RISK OF COMPLICATIONS AND/OR MORBIDITY OR MORTALITY OF PATIENT MANAGEMENT PROVIDER MUST THOROUGHLY DOCUMENT EACH ELEMENT THAT IS COVERED Not available 05/30/2024 11:02:43 Plan of Treatment Reminders Order Date Submit Date Provider Last Modified By Organization Details Last Modified Time Details Appointments FOLLOW UP 15 2024 11:00A M DR GARCIA Not available Not available Not available MEDICARE ANNUAL WELLNESS 2024 10:30A M DR GARCIA Not available Not available Not available Lab HbA1c (hemoglob in A1c), blood 2023 024 [facility], [address] [place] [address], [place], [address], 01/31/2024 15:04:19 Referral None recorded. Procedures None recorded. Surgeries None recorded. Imaging None recorded. Medication Orders glipizide 5 mg tablet 2024 025 [id number], [address] [place], [place], [phone], 05/30/2024 11:11:14 glipizide 5 mg tablet 2023 024 [id number], [address] [place], [place], [phone], 01/31/2024 14:56:23 desonide 0.05 % topical cream 2023 024 [facility] #[id number], [address] [place], [place], [phone], 01/31/2024 15:00:06 Patient TargetsNo targets recorded. Patient Instructions Encounter Date Encounter Id Patient Instructions Last Modified By Organization Details Last Modified Time 01/31/2024 [id number] learning about type 2 diabetes Not available 01/31/2024 14:56:12 type 2 diabetes: care instructions Not available 01/31/2024 14:56:12 Reason for Referral None Reported. Results Created Date Observation Date Name Description Value Unit Range Abnormal Flag Note LastModifiedBy Organization Detail LastModifiedTime 05/23/1905/23/2024 HbA1c (hemo globi n A1c), blood A1C 8.6 abnormal Not Available [facility] (Outpatient) [address] [facility], [place], [address], 05/23/2024 12:37:51 Result Notes None recorded. Problems Name Problem SNOMED Code Status Onset Date Resolution Date Notes Provider Name and Address Organization Details Recorded Time Type 2 diabetes mellitus 32013688 Active 2017 Not Available [facility] 2 12:35:33 Hyperten sive disorder 04371796 Active 2017 Not Available [facility] 2 12:35:33 Benign prostati c hyperpla myron 867701720 Active 2017 Not Available [facility] 2 12:35:33 Hyperlip idemia 79927743 Active 2017 Not Available [facility] 2 12:35:33 Primary erectile dysfunct ion 240275692 Active 2017 Not Available [facility] 2 12:35:33 History of tobacco use 83066919085 03 Active 2017 quit 1998 x 42 years Not Available [facility] 2 12:35:33 Ischemic heart disease 132378046 Active 2017 s/p circumfle x stent 2014 Not Available [facility] 2 12:35:33 Ulcer of toe 439098743 Active 2017 resolved Not Available [facility] 2 12:35:33 Eczema 98938751 Active 2017 Not Available [facility] 2 12:35:33 Vertigo 221401979 Active 2018 Not Available [facility] 2 12:35:33 Multiple actinic keratose s 215148539 Active 2018 Not Available [facility] 2 12:35:33 Babesios is 57377212 Active 2022 Samson Garcia, DO [address] [place] [address], [phone], [facility] 3 14:03:32 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 Samson Coopercristian, DO [address] [place] [address], [phone], [facility] 3 14:03:53 Splenome lety 97938357 Active 2022 Samson Garcia, DO [address] [place] [address], [phone], [facility] 3 14:06:20 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 Samson Marcos Vivi, DO [address] [place] [address], [phone], [facility] 3 14:06:33 Infectio n by Babesia microti 01593043 Active 2022 Samson Coopercristian DO [address] [place] [address], [phone], [facility] 3 17:43:38 Infectio n of tick bite 755243036 Active 2023 Samson Garcia, DO [address] [place] [address], [phone], [facility] 4 13:39:18 Tinea corporis 32447038 Active 2023 Samson Garcia DO [address] [place] [address], [phone], [facility] 4 14:57:38 Problem Notes None recorded. Medical Equipment None Reported. Allergies No known drug allergies Medications Name Sig Start Date Stop Date Status Note LastModified by Organization Details LastModified Time amoxicillin 500 mg capsule TAKE 2 CAPSULES BY MOUTH IMMEDIATE LY THEN CONTINUE WITH 1 CAPSULE BY MOUTH EVERY 6 HOURS UNTIL GONE. 03/04 completed Not Available Not Available Not Available desonide 0.05 % topical cream APPLY TOPICALLY TO THE AFFECTED AREA TWICE DAILY NEEDED active Not Available Not Available No t Available prednisone 10 mg tablet 40 mg x 2 days, 30 mg x 2 days, 20 mg x 2 days, 10 mg x 2 days 02/26 completed Not Available Not Available Not Available doxycycline hyclate 100 mg capsule TAKE 1 CAPSULE BY MOUTH TWICE DAILY WITH FOOD FOR 5 DAYS 04/26 completed Not Available Not Available Not Available atorvastati n 10 mg tablet TAKE 1 TABLET BY MOUTH ONCE DAILY 2024 active Not Available Not Available Not Avai lable azithromyci n 250 mg tablet 01/19 completed Not Available Not Available Not Available hydrocodone 5 mg-acetamin ophen 325 mg tablet TAKE ONE (1) TABLET BY MOUTH EVERY 6 HOURS IF NEEDED FOR SEVERE PAIN (7-10) FOR UP TO 5 DAYS. 07/13 completed Not Available Not Available Not Available Medrol (Silvio) 4 mg tablets in a dose pack 24 mg PO on day 1, then decr. by 4 mg/day x5 days per dose pack instructi on 07/05 completed Not Available Not Available Not Available isosorbide mononitrate ER 30 mg tablet,exte nded release 24 hr TAKE 1 TABLET BY MOUTH DAILY active Not Available Not Available No t Available clopidogrel 75 mg tablet take 1 tablet by mouth once daily 03/28 completed Not Available Not Available Not Available meclizine 25 mg tablet TAKE 1 TABLET BY MOUTH THREE TIMES DAILY FOR 10 DAYS NEEDED 08/02 completed Not Available Not Available Not Available metformin 1,000 mg tablet TAKE 1 TABLET BY MOUTH TWICE DAILY 09/22 completed Not Available Not Available Not Available mupirocin calcium 2 % topical cream 03/04 completed Not Available Not Available Not Available amoxicillin 250 mg capsule 12/04 completed Not Available Not Available Not Available bisacodyl 5 mg tablet,indira yed release 03/29 completed Not Available Not Available Not Available mupirocin 2 % topical ointment APPLY SMALL AMOUNT TOPICALLY TO THE AFFECTED AREA THREE TIMES DAILY 07/14 completed Not Available Not Available Not Available lisinopril 2.5 mg tablet TAKE 1 TABLET BY MOUTH DAILY active Not Available Not Available No t Available doxycycline hyclate 100 mg tablet TAKE 1 TABLET BY MOUTH TWICE DAILY FOR 10 DAYS 10/18 completed Not Available Not Available Not Available glipizide 5 mg tablet TAKE 1 TABLET BY MOUTH TWICE DAILY active Not Available Not Available No t Available atovaquone 750 mg/5 mL oral suspension SHAKE LIQUID AND TAKE 5 ML BY MOUTH TWICE DAILY FOR 3 DAYS 08/02 completed Not Available Not Available Not Available azithromyci n 500 mg tablet TAKE 1 TABLET BY MOUTH EVERY DAY FOR 8 DAYS 08/02 completed Not Available Not Available Not Available Fish Oil 1200 mg 2x a day active Not Available Not Available No t Available Aspir-81 Take one tablet once a day active Not Available Not Available No t Available Tums prn active Not Available Not Availa ble Not Available Centrum Silver Take one tablet once a day active Not Available Not Available No t Available GaviLyte-G 236 gram-22.74 gram-6.74 gram-5.86 gram oral solution 03/29 completed Not Available Not Available Not Available OneTouch Verio test strips USE 1 STRIP DIRECTED TO TEST BLOOD SUGAR TWICE DAILY active Not Available Not Available No t Available Jardiance 10 mg tablet TAKE 1 TABLET BY MOUTH EVERY DAY 12/22 completed Not Available Not Available Not Available Jardiance 25 mg tablet TAKE 1 TABLET BY MOUTH EVERY DAY DIRECTED active Not Available Not Available No t Available Shingrix (PF) 50 mcg/0.5 mL intramuscul ar suspension, kit 09/20 completed Not Available Not Available Not Available Fluzone High-Dose 7648-9189 (PF) 180 mcg/0.5 mL intramuscul ar syringe 03/29 completed Not Available Not Available Not Available Fluad Quad 8660-8178(6 5yr up)(PF) 60 mcg (15 mcg x 4)/0.5mL IM syringe 02/26 completed Not Available Not Available Not Available Vitals Date Recorded Body height Body mass index (BMI) Body weight Heart rate Oxygen saturation Oxygen saturation in Arterial blood by Pulse oximetry Systolic blood pressure Diastolic blood pressure Provider Name and Address Organization Details Last Updated DateTime 3 190.5 cm 27.5 kg/m2 15204.3 2 g 92 /min 95 % 95 % 110 mm[Hg] 64 mm[Hg] [facility] 3 11:14:21 Date Recorded Body height Body mass index (BMI) Body weight Heart rate Oxygen saturation Oxygen saturation in Arterial blood by Pulse oximetry Systolic blood pressure Diastolic blood pressure Provider Name and Address Organization Details Last Updated DateTime 4 190.5 cm 28.1 kg/m2 467898. 85 g 4 /min 96 % 96 % 132 mm[Hg] 78 mm[Hg] [facility] 4 11:37:55 Date Recorded Body height Body mass index (BMI) Body weight Heart rate Oxygen saturation Oxygen saturation in Arterial blood by Pulse oximetry Systolic blood pressure Diastolic blood pressure Provider Name and Address Organization Details Last Updated DateTime 4 190.5 cm 27.9 kg/m2 549855. 1 g 59 /min 97 % 97 % 112 mm[Hg] 68 mm[Hg] [facility] 4 10:18:38 Date Recorded Body height Body mass index (BMI) Body weight Heart rate Oxygen saturation Oxygen saturation in Arterial blood by Pulse oximetry Systolic blood pressure Diastolic blood pressure Provider Name and Address Organization Details Last Updated DateTime 4 190.5 cm 27.9 kg/m2 709007. 1 g 94 /min 95 % 95 % 120 mm[Hg] 68 mm[Hg] [facility] 4 14:29:10 Date Recorded Body height Body mass index (BMI) Body weight Heart rate Oxygen saturation Oxygen saturation in Arterial blood by Pulse oximetry Systolic blood pressure Diastolic blood pressure Provider Name and Address Organization Details Last Updated DateTime 5 190.5 cm 28.7 kg/m2 928147. 25 g 70 /min 96 % 96 % 124 mm[Hg] 58 mm[Hg] [facility] 5 10:43:14 Social History Question Answer Notes LastModified by Organizat ion Details LastModified Time Tobacco Smoking Status Former Smoker Not Available [facility] 03/11/2020 03:36:24 What Was The Date Of Your Most Recent Tobacco Screening? 05/30/2024 [email or web address] Information not available 05/30/2024 Do You Or Have You Ever Used Any Other Forms Of Tobacco Or Nicotine? No [email or web address] Information not available 12/22/2022 Sex: Unknown Functional Status None recorded. Mental Status None recorded. Family History Nothing Reported. Medical History No medical history recorded. Immunizations Vaccine Type Date Status Note Provider Nam e and Address Organization Details Recorded Time COVID-19, mRNA, LNP-S, PF, 30 mcg/0.3 mL dose 1 completed Not Available [facility] 12/21/2022 21:53:52 Influenza, split virus, quadrivalent, preservative 8 completed Not Available [facility] 12/21/2022 21:53:51 Influenza, split virus, quadrivalent, preservative 1 completed Not Available [facility] 12/21/2022 21:53:52 COVID-19, mRNA, LNP-S, PF, 30 mcg/0.3 mL dose 2 completed Not Available [facility] 12/21/2022 21:53:52 influenza, unspecified formulation 2 completed Not Available [facility] 12/21/2022 21:53:52 Influenza, split virus, quadrivalent, preservative 9 completed Not Available [facility] 12/21/2022 21:53:51 Influenza, split virus, quadrivalent, preservative 0 completed Not Available [facility] 12/21/2022 21:53:51 COVID-19, mRNA, LNP-S, PF, 30 mcg/0.3 mL dose 1 completed Not Available [facility] 12/21/2022 21:53:52 COVID-19, mRNA, LNP-S, PF, 30 mcg/0.3 mL dose 1 completed Not Available [facility] 12/21/2022 21:53:52 Tdap 5 completed Not Available [facility] 12/21/2022 21:53:52 pneumococcal polysaccharide PPV23 7 completed Not Available [facility] 12/21/2022 21:53:52 Pneumococcal conjugate PCV 13 5 completed Not Available [facility] 12/21/2022 21:53:52 zoster recombinant 9 completed Not Available [facility] 12/21/2022 21:53:52 Past Encounters Encounter ID Performer Location Encounter Start Date Encounter Closed Date Diagnosis/Indication Diagnosis SNOMED-CT Code Diagnosis ICD10 Code Diagnosis Note [id number] DO [facility] [address] [facility],[address] [address] 12/14/2017 08:57:40 12/14/2017 10:00:07 Type 2 diabetes mellitus 89655158 E11.9 needs a1c done Hypertensive disorder 38 940774 I10 bps are excellent no change in meds Ischemic h eart disease 263368753 I25.9 completely asymptomat ic and stable with current meds [id number] Samson Garcia [facility] [address] [facility] [address] [address] 03/29/2018 10:22:39 03/29/2018 12:19:03 Hypertensive disorder 31918014 I10 bps are excellent no change in meds Type 2 charles betes mellitus 23967036 E11.9 a1c is elevated at 7.1 and admits to eating lots of carbs will tyr to be better and will change diet as we discussed Abdominal aortic aneurysm screening 539334152 Z13.6 [id number] August LILIA Watters [facility] Internal Medicine [address] [facility],[place] [address] 05/19/2018 14:49:21 05/19/2018 15:35:45 Type 2 diabetes mellitus 98832371 E11.9 Vertigo 754785245 R42 conferred with MB who agrees presents similar to labyrinthi tis/paroxy smal vertigo pt asymptomat ic at this oint but will rx treatment just in case sx return over the weekend [id number] Samson Garcia [facility] [address] [facility],[place] [address] [place] [address] 07/05/2018 09:56:32 07/05/2018 11:24:51 Type 2 diabetes mellitus 08087452 E11.9 a1c is elevated at 7.1 and admits to eating lots of carbs will tyr to be better and will change diet as we discussed Hypertensive disorder 38 130904 I10 bps are excellent no change in meds Abdominal aortic aneurysm screening 152679704 Z13.6 recc he have this done Samson Garcia [facility] [address] [facility] [address] [place] [address] [place] [address] 09/20/2018 11:07:55 09/20/2018 12:06:38 Hypertensive disorder 78221073 I10 bps are excellent no change in meds Type 2 charles betes mellitus 05957631 E11.9 a1c is elevated at 7.1 and admits to eating lots of carbs will tyr to be better and will change diet as we discussed Hyperlipidemia 91308204 E78.5 Ulcer of toe 078448506 L 97.509 will refill for mupirocin Ischemic h eart disease 330980317 I25.9 completely asymptomat ic and stable with current meds [id number] Samson Garcia [facility] [address] [facility] [place] [address] [facility] [place] [address] 12/27/2018 11:26:22 12/27/2018 11:58:36 Hypertensive disorder 90446212 I10 bps are excellent no change in meds Type 2 charles betes mellitus 65416663 E11.9 a1c is elevated at 7.2 and admits to eating lots of carbs will tyr to be better and will change diet as we discussed Ischemic h eart disease 177917530 I25.9 completely asymptomat ic and stable with current meds Vertigo 703058023 R42 cont mecliz Ulcer of toe 124529739 L 97.509 will refill for mupirocin Multiple a ctinic keratoses 543967789 L57.0 has multiple new lesion adn some changes on a ear pinna lesion [id number] Samson Garcia [facility] [address] [facility], [address] [facility] [place] [address] 03/28/2019 11:27:40 03/28/2019 12:10:21 Hypertensive disorder 19111284 I10 bps are excellent no change in meds Type 2 charles betes mellitus 34322251 E11.9 a1c is still elevated at 7.0 and was 7.2 and will change diet as we discussed Multiple a ctinic keratoses 293678615 L57.0 has multiple new lesion adn some changes on a ear pinna lesion Ischemic h eart disease 052643975 I25.9 completely asymptomat ic and stable with current meds [place] [id number] Samson Garcia [facility] Internal Medicine [address] [facility],[place] [address] [facility] [place] [address] 07/04/2019 11:28:39 07/04/2019 12:05:08 Type 2 diabetes mellitus 73241087 E11.9 a1c is still elevated at 7.8 and prior at 7.0 and was 7.2 and will change diet as we discussed Hypertensive disorder 38 486281 I10 bps are excellent no change in meds Active or passive immunization 087315753 Z23 [id number] Samson Garcia DO [facility] Internal Medicine [address] [facility],[place] [address] 12/05/2019 09:58:28 12/05/2019 11:48:35 Multiple actinic keratoses 909896024 L57.0 has multiple new lesion adn some changes on a ear pinna lesion but this is getting improved overall Benign pro static hyperplasia 570169339 N40.0 stable and about the same Hypertensive disorder 38 134327 I10 bps are excellent no change in meds Ischemic h eart disease 949165776 I25.9 completely asymptomat ic and stable with current meds is off the clopidigre l Type 2 charles betes mellitus 43722332 E11.9 a1c is better at 7.3 was 7.8 and prior at 7.0 and was 7.2 and will change diet as we discussed [id number] ANDRES CROWE [facility] Internal Medicine [address] [facility],[place] [address] 12/28/2019 10:55:27 12/28/2019 11:42:01 Cellulitis 648076549 L03.90 will start on doxy and pred given length of time he has had the reaction to the bite will treat 10 days given amount of time this has been going on Infected insect bite 262 250906 L08.9 not sure, says it may of been a spider but doesn't know [id number] Samson Garcia, [facility] Internal Medicine [address] [facility],[place] [address] 02/27/2020 11:13:24 02/27/2020 12:32:09 Hypertensive disorder 34898536 I10 bps are excellent no change in meds Type 2 charles betes mellitus 72580836 E11.9 a1c is 7.7 at 7.3 was 7.8 and prior at 7.0 and was 7.2 and will change diet as we discussed Ulcer of toe 140224102 L 97.509 will refill for mupirocin Eczema 28957947 L30.9 [id number] [facility] [address] [facility],[place] [address] 07/16/2020 15:56:26 07/16/2020 16:33:16 Hypertensive disorder 97662472 I10 bps are excellent no change in meds Type 2 charles betes mellitus 96462228 E11.9 a1c is now 7.1 and in february was 7.7 at 7.3 was 7.8 and prior at 7.0 and was 7.2 and had changed diet as we discussed and had been more careful ur microalb is negative Ischemic h eart disease 400519749 I25.9 completely asymptomat ic and stable with current meds is off the clopidigre l Benign pro static hyperplasia 399836415 N40.0 stable and about the same awake every 4 hours or so but he is stable [id number] [facility] [address] [facility],[place] [address] 10/28/2020 11:54:47 10/28/2020 12:22:13 Ulcer of toe 869163583 L97.509 will refill for mupirocin but ut us healed quite well Hypertensive disorder 38 007411 I10 bps are excellent no change in meds Type 2 charles betes mellitus 74898862 E11.9 a1c is now 7.3 and was 7.1 and in february was 7.7 at 7.3 was 7.8 and prior at 7.0 and was 7.2 and had changed diet as we discussed and had been more careful ur microalb is negative [id number] [facility] [address] [facility],[place] [address] 03/04/2021 11:07:37 03/04/2021 14:32:12 Hypertensive disorder 89624693 I10 bps are excellent no change in meds Type 2 charles betes mellitus 17187624 E11.9 a1c is now 7.4 was 7.3 and was 7.1 and in february was 7.7 at 7.3 was 7.8 and prior at 7.0 and was 7.2 and had changed diet as we discussed and had been more careful ur microalb is negative Hyperlipidemia 32610260 E78.5 superb with an LDL of 38 and HDL 52 Ischemic h eart disease 467032812 I25.9 completely asymptomat ic and stable [place] no [place] [id number] Samson Garcia [facility] Internal Medicine [address] [facility] [place] [address] 07/13/2021 14:01:47 07/13/2021 15:33:39 Type 2 diabetes mellitus 65853683 E11.9 a1c is now 7.7 and was 7.4 was 7.3 and was 7.1 and in february 2021 was 7.7 at 7.3 was 7.8 and prior at 7.0 and was 7.2 changed diet as we discussed and had been more careful ur microalb is negative Hypertensive disorder 38 407913 I10 bps are excellent no change in meds Ulcer of toe 761625348 L 97.509 will refill for mupirocin but ut us healed quite well Impetigo 42643052 L01.00 on scalp using mupiorocin to tx without response we will change to doxycyc Body mass index 25-29 - overweight 875898677 Z68.29 done [id number] Samson Garcia [facility] Internal Medicine [address] [facility],[place] [employer] [facility] ShopUP[facility] [address] 01/20/2022 10:31:07 01/20/2022 14:38:49 Type 2 diabetes mellitus 04352280 E11.9 a1c is now back to 7.4 and prior was 7.7 and was 7.4 was 7.3 and was 7.1 and in february 2021 was 7.7 at 7.3 was 7.8 and prior at 7.0 and was 7.2 changed diet as we discussed and had been more careful ur microalb is negative Hypertensive disorder 38 839525 I10 bps are excellent no change in meds [id number] Samson Garcia [facility] Internal Medicine [address] [facility] [place] D [employer] ShopUP[facility] [address] 04/26/2022 10:34:04 04/26/2022 11:37:18 Type 2 diabetes mellitus 54127381 E11.9 a1c is pending PRIOR he was back to 7.4 and prior was 7.7 and was 7.4 was 7.3 and was 7.1 and in february 2021 was 7.7 at 7.3 was 7.8 and prior at 7.0 and was 7.2 changed diet as we discussed and had been more careful ur microalb is negative Hyperlipidemia 15884331 E78.5 superb with an LDL of 38 and HDL 52 Hypertensive disorder 38 022310 I10 bps are excellent no change in meds [id number] Samson Garcia [facility] Internal Medicine [address] [facility], ite [facility] [place] [address] 07/14/2022 09:34:25 07/14/2022 14:05:58 Hypertensive disorder 02039922 I10 bps are excellent no change in meds Type 2 charles betes mellitus 38962047 E11.9 a1c is up to 7.8 was 7.7 in the fall and 7.8 in july last year c mp was good kidneys are good ur microalb is negative Ischemic h eart disease 650609546 I25.9 completely asymptomat ic and stable with current medsno cp no sob Ulcer of toe 658045863 L 97.509 will refill for mupirocin but ut us healed quite well Advance care planning 71 5872965 Z71.89 utd [id number] Samson Garcia [facility] Internal Medicine [address] [facility], [place] [facility] [place] [address] 09/22/2022 11:00:35 09/22/2022 12:30:27 Type 2 diabetes mellitus 30443743 E11.9 a1c has been stable prior had been up to 7.8 was 7.7 in the fall and 7.8 in july last year c mp was good kidneys are good ur microalb is negative Hypertensive disorder 38 025341 I10 bps are excellent no change in meds Ulcer of toe 106373344 L 97.509 but ut us healed quite well [id number] Samson Garcia [facility] Internal Medicine [address] 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 [employer] [place] [address] 01/19/2023 11:30:28 01/19/2023 13:20:11 Hyperlipidemia 94638158 E78.5 superb with an LDL of 38 and HDL 52 Hypertensive disorder 38 358894 I10 bps are excellent no change in meds Ischemic h eart disease 918989092 I25.9 completely asymptomat ic and stable with current medsno cp no sob Babesiosis 41744230 B60. 00 now resolved Type 2 charles betes mellitus 76491427 E11.9 a1c is 5.5 and is doing great eating better now and told him to back off on junk food ur microalb is negative [id number] Samson Garcia [facility] Internal Medicine [address] [facility] [place], [place] [facility] [place] [address] 03/01/2023 14:45:19 03/01/2023 15:54:06 Ischemic heart disease 732737005 I25.9 completely asymptomat ic and stable with current medsno cp no sob Hypertensive disorder 38 624979 I10 bps are excellent no change in meds Type 2 charles betes mellitus 79132258 E11.9 a1c is 5.3 and is doing great eating better now and told him to back off on junk food ur microalb is negative [id number] Samson Garcia [facility] Internal Medicine [address] [facility] [place], [place] [employer] [address] 04/20/2023 11:08:25 04/20/2023 13:34:10 Hypertensive disorder 86057143 I10 bps are excellent no change in meds Ischemic h eart disease 230611412 I25.9 completely asymptomat ic and stable with current medsno cp no sob Type 2 charles betes mellitus 94266724 E11.9 a1c is elevated to 8.6 now after eating well from babesiosis and is doing great with his albumin and protein is better now and told him to back off on junk food ur microalb is negative [id number] Samson Garcia [facility] Internal Medicine [address] [facility] [place], [employer] [place] [address] 08/03/2023 11:21:44 08/03/2023 13:47:12 Type 2 diabetes mellitus 32620385 E11.9 a1c is elevated to8.0 prior when sick was5.5 prior 8.6 now after eating well from babesiosis and is doing great with his albumin and protein is better now and told him to back off on junk food ur microalb is negative Hypertensive disorder 38 458147 I10 bps are excellent no change in meds Hyperlipidemia 29580623 E78.5 superb with an LDL of 38 and HDL 52 Ischemic h eart disease 189771825 I25.9 completely asymptomat ic and stable with current medsno cp no sob [id number] Samson Garcia [facility] Internal Medicine [address] [facility] [place], [place] [address] 10/19/2023 10:11:13 10/19/2023 10:51:44 Hyperlipidemia 70359971 E78.5 superb with an LDL of 38 and HDL 52 Type 2 charles betes mellitus 53416538 E11.9 a1c is 8.0 was elevated to 8.0 prior when sick was 5.5 prior 8.6 now after eating well from babesiosis and is doing great with his albumin and protein is better now and told him to back off on junk food ur microalb is negative Hypertensive disorder 38 628283 I10 bps are excellent no change in meds Depression screening 171 996850 Z13.31 SCREENING NEGATIVE [id number] Samson Garcia [facility] Internal Medicine [address] [facility], [place] [address] 01/31/2024 14:20:49 01/31/2024 15:09:19 Hypertensive disorder 40945451 I10 bps are excellent no change in meds Type 2 charles betes mellitus 42491986 E11.9 a1c is 8.0 was elevated to 8.0 prior when sick was 5.5 prior 8.6 now after eating well from babesiosis and is doing great with his albumin and protein is better now and told him to back off on junk food ur microalb is negative Eczema 95980373 L30.9 [id number] Samson Garcia [facility] Internal Medicine [address] [facility], [place] [address] 05/30/2024 10:28:31 05/30/2024 11:16:22 Hyperlipidemia 46125683 E78.5 superb with an LDL of 38 and HDL 52 Hypertensive disorder 38 173105 I10 bps are excellent no change in meds Type 2 charles betes mellitus 85526022 E11.9 a1c is 8.6 was 8.0 relates he has not been good with his dietlong discussion re portion control and to avoid his snacks that he eats throughout the day and relates it is a habit to eat these not hungry per se was elevated to 8.0 prior when sick was 5.5 prior 8.6 now after eating well from babesiosis and is doing great with his albumin and protein is better now and told him to back off on junk food ur microalb is negative Ischemic h eart disease 295162309 I25.9 completely asymptomat ic and stable with current medsno cp no sob Health Concerns Section Related Observation LastModified by Organization Detai ls LastModified Time None Recorded Concern Status LastModified by Organization Details LastModified Time None Recorded Advance Directives Directive None Recorded Payers Encounter Date Sequence Insurance Name Policy Number Policy Anne Covered Member ID Anne Member ID Guarantor Name 04/20/2023 1 [place] [facility] [id number] Bryson Hernandez [id number] Bryson Hernandez 08/03/2023 1 [place] [facility] [id number] Bryson Hernandez [id number] Bryson Hernandez 10/19/2023 1 [place] [facility] [employer] [place] [facility] [id number] Bryson Hernandez [id number] Bryson Hernandez 01/31/2024 1 [place] [facility] [id number] Bryson Hernandez [id number] Bryson Hernandez 05/30/2024 1 [place] [employer] [place] ([facility]) [id number] Bryson Hernandez [id number] Bryson Hernandez Notes Date Note Type Note Provider Name and Address Organization Details Recorded Time 3 text/htm l here for rechk and is doing ok except he has not been eating well and a lot of dietary [id number] 8.6 now so obviously he needs to tailor that back Samson Garcia, DO [address] [facility], [place], [address], [facility] Internal [facility] 04/20/2023 11:46:47 4 text/htm l Care Management - DiabetesReported bypatient.Self Care:seeing eye doctor yearly for dilated eye exam; checking feet regularly; normal range of home blood sugars (in the low 100s); no side effects from medications Associated Symptoms:symptoms are usually well controlled; no fatigue; no dizziness; no excessive sweating; no headaches; no confusion; no increased thirst; no increased appetite; no increased urination; no blurred vision; no numbness of feet; no calluses on feetCare Management - HypertensionReported bypatient.Self Care:not under emotional stress Severity:symptoms are improving; does not interfere with daily activities Associated Symptoms:no dizziness; no lightheadedness; no chest pain; no shortness of breath; no palpitations; no edema; no calf muscle cramps; no blurred vision; no confusion; no headaches; no fatigueNotes:still having too much carbs here for rechk and is feeling okno cp no sobsleeps okbowels ok 2 x nocturia Samson Garcia DO [address] [place] [address], [phone] 08/03/2023 12:07:34 4 text/htm l Care Management - DiabetesReported bypatient.Self Care:seeing eye doctor yearly for dilated eye exam; checking feet regularly; normal range of home blood sugars (in the low 100s); no side effects from medications Associated Symptoms:symptoms are usually well controlled; no fatigue; no dizziness; no excessive sweating; no headaches; no confusion; no increased thirst; no increased appetite; no increased urination; no blurred vision; no numbness of feet; no calluses on feetCare Management - HypertensionReported bypatient.Self Care:not under emotional stress Severity:symptoms are improving; does not interfere with daily activities Associated Symptoms:no dizziness; no lightheadedness; no chest pain; no shortness of breath; no palpitations; no edema; no calf muscle cramps; no blurred vision; no confusion; no headaches; no fatigue here for rechk and is feeling good no cp no soblight headedness is gone babesiosis is sjews0x is pending Samson Garcia DO [address] [place] [address], [phone] 10/19/2023 10:49:45 4 text/htm l Care Management - DiabetesReported bypatient.Self Care:seeing eye doctor yearly for dilated eye exam; checking feet regularly; normal range of home blood sugars (in the low 100s); no side effects from medications Associated Symptoms:symptoms are usually well controlled; no fatigue; no dizziness; no excessive sweating; no headaches; no confusion; no increased thirst; no increased appetite; no increased urination; no blurred vision; no numbness of feet; no calluses on feetCare Management - HypertensionReported bypatient.Self Care:not under emotional stress Severity:symptoms are improving; does not interfere with daily activities Associated Symptoms:no dizziness; no lightheadedness; no chest pain; no shortness of breath; no palpitations; no edema; no calf muscle cramps; no blurred vision; no confusion; no headaches; no fatigue here for rechkand is doing oknocp no sobappetite is oksleep is goodbowels okvoid is ok Samson Garcia DO [address] [place], [address], [facility] Internal Medicine 01/31/2024 15:03:30 5 text/htm l Care Management - DiabetesReported bypatient.Self Care:seeing eye doctor yearly for dilated eye exam; checking feet regularly; normal range of home blood sugars (in the low 100s); no side effects from medications Associated Symptoms:symptoms are usually well controlled; no fatigue; no dizziness; no excessive sweating; no headaches; no confusion; no increased thirst; no increased appetite; no increased urination; no blurred vision; no numbness of feet; no calluses on feetCare Management - HypertensionReported bypatient.Self Care:not under emotional stress Severity:symptoms are improving; does not interfere with daily activities Associated Symptoms:no dizziness; no lightheadedness; no chest pain; no shortness of breath; no palpitations; no edema; no calf muscle cramps; no blurred vision; no confusion; no headaches; no fatigue here for rechk and is feeling goodstill diggin for clams and oysters!states is very active Samson Garcia DO [address] [place], [address], [facility] Internal Medicine 05/30/2024 11:12:33
--- OUTSIDE RECORDS SUMMARY | 2024-09-04 08:35 | XMS_ITS | Data Portability ---
Author Organization [facility], , [facility] Address [address] [place] [address] Care Team Providers Care Object Oriented Programmer Name Role Phone SOPHIE ALEMAN MD OTHER SOPHIE BETHEA OTHER Assessment Encounter Date Assessment [...] None recorded. Lab PSA, total 2008 009 [facility], [address] [place] [address], [address], 3 03:26:39 CBC 2008 009 [facility], [address] [place] [address], [address], 3 03:26:40 Referral None recorded. Procedures None recorded. Surgeries None recorded. Imaging electrocard iogram 2008 009 [facility], [address] [place] [address], [address], 3 03:26:39 ultrasound, abdominal aorta - screening 2008 009 [facility], [address] [place], [address], 3 03:26:39 ultrasound, leg - r/o DVT 2008 009 [facility], [address] [place], [address], 3 03:17:32 Medication Orders aspirin 81 mg tablet 2008 009 [id number], [address] [place], [place], [phone], 3 03:26:40 Cialis 20 mg tablet 2008 009 [id number], [address], [place], [phone], 3 03:26:40 Patient TargetsNo targets recorded. Patient Instructions Encounter Date Encounter Id Patient Instructions Last Modified By Organization Details Last Modified Time 08/08/2008 [id number] [id number] Not available 12/07/2010 03:06:54 10/31/2008 [id number] [email or web address] [id number] Not available 12/07/2010 02:52:03 Reason for Referral None Reported. Results Created Date Observation Date Name Description Value Unit Range Abnormal Flag Note LastModifiedBy Organization Detail LastModifiedTime 11/01/1910/31/2008 elect marco diogr am Result Sinus bradyc ardia, WNL Not Available [address], [address], 10/31/2008 10:21:14 07/16/19 09 07/15/2008 hemog lobin A1C w/ mpg hemoglobin A1C 6.9 % 4.8-6. 0 high goal: <7% in patie nts with diabe rahul Not Available [address], [address], 07/15/2008 11:56:19 07/16/19 09 07/15/2008 hemog lobin A1C w/ mpg estimated average glucose 151.3 mg/dL Not Available [address], [address], 07/15/2008 11:56:19 07/16/19 09 07/15/2008 lipid panel cholesterol 231 mg/dL <200 mg/dL doc eable 200-2 39 mg/dL borde rline high >240 mg/dL high Not Available [address], [address], 07/15/2008 12:52:54 07/16/19 09 07/15/2008 lipid panel triglyceride s 329 mg/dL <150 mg/dL izzy l 150-1 99 mg/dL borde rline high 200-4 99 mg/dL high >500 mg/dL very high Not Available [address], [address], 07/15/2008 12:52:54 07/16/19 09 07/15/2008 lipid panel direct HDL 48 mg/dL <40 mg/dL - major risk for CHD >60 mg/dL - negat alberto risk for CHD Not Available [address], [address], 07/15/2008 12:52:54 07/16/19 09 07/15/2008 lipid panel [...] r IS not neces elisabet. Not Available [address], [address], 07/15/2008 12:52:54 10/23/19 09 10/22/2008 hemog lobin A1C w/ mpg hemoglobin A1C 6.8 % 4.8-6. 0 high goal: <7% in patie nts with diabe rahul Not Available [address], [address], 10/22/2008 11:56:55 10/23/19 09 10/22/2008 hemog lobin A1C w/ mpg estimated average glucose 148.5 mg/dL Not Available [address], [address], 10/22/2008 11:56:55 10/23/19 09 10/22/2008 lipid panel cholesterol 220 mg/dL <200 mg/dL doc eable 200-2 39 mg/dL borde rline high >240 mg/dL high Not Available [address], [address], 10/22/2008 12:20:03 10/23/19 09 10/22/2008 lipid panel triglyceride s 314 mg/dL <150 mg/dL izzy l 150-1 99 mg/dL borde rline high 200-4 99 mg/dL high >500 mg/dL very high Not Available [address], [address], 10/22/2008 12:20:03 10/23/19 09 10/22/2008 lipid panel direct HDL 50 mg/dL <40 mg/dL - major risk for CHD >60 mg/dL - negat alberto risk for CHD Not Available [address], [address], 10/22/2008 12:20:03 10/23/19 09 10/22/2008 lipid panel [...] r IS not dom bhandari. Not Available [address], [address], 10/22/2008 12:20:03 10/23/19 09 10/22/2008 basic metab [...] testi ng on A .) Not Available [address], [address], 10/22/2008 12:20:04 10/23/19 09 10/22/2008 basic metab olic panel BUN 16 mg/dL 7-18 Not Available [address], [address], 10/22/2008 12:20:04 10/23/19 09 10/22/2008 basic metab olic panel creatinine 1.1 mg/dL 0.8-1. 3 Not Available [address], [address], 10/22/2008 12:20:04 10/23/19 09 10/22/2008 basic metab olic panel B/C 14.5 ratio Not Available [address], [address], 10/22/2008 12:20:04 10/23/19 09 10/22/2008 basic metab olic panel GFR 71.2 mL/mi n recom torey d GFR by the natio nal kidne y found ation >60 mL/mi n/1.7 3M2 - izzy l <60 mL/mi n/1.7 3M2 - chron ic kidne y disea se <15 mL/mi n/1.7 3M2 - kidne y failu re Not Available [address], [address], 10/22/2008 12:20:04 10/23/19 09 10/22/2008 basic metab olic panel GFR - if 86.1 mL/mi n for afric an ameri can patie nts: resul ts multi plied by 1.21 Not Available [address], [address], 10/22/2008 12:20:04 10/23/19 09 10/22/2008 basic metab olic panel sodium 142 mmol/ L 136-14 5 Not Available [address], [address], 10/22/2008 12:20:04 10/23/19 09 10/22/2008 basic metab olic panel potassium 4.6 mmol/ L 3.5-5. 1 Not Available [address], [address], 10/22/2008 12:20:04 10/23/19 09 10/22/2008 basic metab olic panel chloride 103 mmol/ L 96-107 Not Available [address], [address], 10/22/2008 12:20:04 10/23/19 09 10/22/2008 basic metab olic panel _anion gap 12.0 Not Available [address], [address], 10/22/2008 12:20:04 10/23/19 09 10/22/2008 basic metab olic panel CO2 27 mmol/ L 21-32 Not Available [address], [address], 10/22/2008 12:20:04 10/23/19 09 10/22/2008 basic metab olic panel calcium 8.8 mg/dL 8.5-10 .3 Not Available [address], [address], 10/22/2008 12:20:04 10/23/19 09 10/22/2008 micro album in, rando m urine microalbumin 6.8 mg/L 1.3-20 .0 Not Available [address], [address], 10/22/2008 13:54:57 10/23/19 09 10/22/2008 micro album in, rando m urine creatinine, urine 137.2 mg/dL 30.0-1 25.0 high Not Available [address], [address], 10/22/2008 13:54:57 10/23/19 09 10/22/2008 micro album in, rando m urine microalb/cre at ratio 5.0 mg/g_ creat 0.0-29 .0 Not Available [address], [address], 10/22/2008 13:54:57 12/18/19 09 12/18/2008 CBC WBC 4.6 K/?L 4.6-10 .2 Not Available [address], [address], 12/18/2008 08:44:34 12/18/19 09 12/18/2008 CBC lymph # 1.7 K/?L 0.6-3. 4 Not Available [address], [address], 12/18/2008 08:44:34 12/18/19 09 12/18/2008 CBC mid # 0.5 K/?L 0.0-1. 8 Not Available [address], [address], 12/18/2008 08:44:34 12/18/1912/18/2008 CBC gran # 2.5 K/?L 2.0-6. 9 Not Available [address], [address], 12/18/2008 08:44:34 12/18/1912/18/2008 CBC lymph % 36.3 % 10.0-5 0.0 Not Available [address], [address], 12/18/2008 08:44:34 12/18/1912/18/2008 CBC mid % 10.4 % 0.1-24 .0 Not Available [address], [address], 12/18/2008 08:44:34 12/18/1912/18/2008 CBC gran % 53.3 % 37.0-8 0.0 Not Available [address], [address], 12/18/2008 08:44:34 12/18/1912/18/2008 CBC RBC 4.69 M/?L 4.69-6 .13 Not Available [address], [address], 12/18/2008 08:44:34 12/18/1912/18/2008 CBC HGB 15.0 g/dL 14.1-1 8.1 Not Available [address], [address], 12/18/2008 08:44:34 12/18/1912/18/2008 CBC HCT 43.4 % 43.5-5 3.7 low Not Available [address], [address], 12/18/2008 08:44:34 12/18/1912/18/2008 CBC MCV 92.5 ?L 80.0-9 7.0 Not Available [address], [address], 12/18/2008 08:44:34 12/18/19 09 12/18/2008 CBC MCH 32.0 pg 27.0-3 1.2 high Not Available [address], [address], 12/18/2008 08:44:34 12/18/19 09 12/18/2008 CBC MCHC 34.6 g/dL 31.8-3 5.4 Not Available [address], [address], 12/18/2008 08:44:34 12/18/19 09 12/18/2008 CBC plt 214.0 K/?L 142.0- 424.0 Not Available [address], [address], 12/18/2008 08:44:34 12/18/19 09 12/18/2008 CBC RDW 14.3 % 11.6-1 4.8 Not Available [address], [address], 12/18/2008 08:44:34 12/18/19 09 12/18/2008 CBC _MPV 0.0 Not Available [address], [address], 12/18/2008 08:44:34 12/18/19 09 12/20/2008 PSA, total PSA 4.67 NG/mL 0.00-4 .00 high Not Available [address], [address], 12/20/2008 07:19:41 08/10/19 09 08/08/2008 ultra sound , leg No observ ation record ed. [address], [address], 12/01/2012 03:17:40 11/06/19 09 11/04/2008 ultra sound , abdom inal aorta No observ ation record ed. [address], [address], 12/01/2012 03:27:05 Result Notes None recorded. Problems Name Problem SNOMED Code Status Onset Date Resolution Date Notes Provider Name and Address Organization Details Recorded Time Mixed hyperlipid emia 649141632 Active 2001 Not Available [facility] 3 03:08:44 Impotence of organic origin Active 2007 Not Available [facility] 3 03:08:44 Edema of extremity 354731611 Completed 03/28/2013 Not Available [facility] 3 02:02:54 Contusion, knee and lower leg 002887363 Active Not Available [facility] 3 03:08:44 Type 2 diabetes mellitus without complicati on 619727704 Active 2000 Not Available [facility] 3 03:08:44 Elevated blood-pres sure reading without diagnosis of hypertensi on 048564607 Active 2002 Not Available [facility] 3 03:08:44 Morbid obesity 566147505 Active 2000 Not Available [facility] 3 03:08:44 Uncontroll ed type 2 diabetes mellitus 599679790 Active 2004 Not Available [facility] 3 03:08:44 Hyperlipid emia 24554860 Active 2006 Not Available [facility] 3 03:08:44 Benign prostatic hyperplasi a 757086876 Active 2007 Not Available [facility] 3 03:08:44 Problem Notes None recorded. Procedures Surgical History None recorded. Imaging Results Imaging Date Name Status LastModified by Organiz ation Details LastModified Time 08/08/2008 ultrasound, leg completed [facility] [address] [place], [address], 12/01/2012 03:17:40 11/04/2008 ultrasound, abdominal aorta completed [address] [place], [address], 12/01/2012 03:27:05 Procedure Notes None recorded. Medical [...] Address Organization Details Last Updated DateTime 08/08/2008 980819.60 857 g 76 /min 96 mm[Hg] 64 mm[Hg] Rita Liu CMA(AAMA) [facility] 08/08/2008 14:39:24 Date Recorded Body height Body weight Body mass index (BMI) Heart rate Systolic blood pressure Diastolic blood pressure Provider Name and Address Organization Details Last Updated DateTime 9 187.96 cm 245606. 690188 g 33.1 kg/m2 76 /min 138 mm[Hg] 70 mm[Hg] Emelia Turcios LPN [facility] 9 10:27:36 Social History Question Answer Notes [...] influenza, unspecified formulation 1 completed Not Available [facility] 03/24/2011 05:20:34 influenza, unspecified formulation 4 completed Not Available [facility] 03/24/2011 05:21:07 influenza, unspecified formulation 5 completed Not Available [facility] 03/24/2011 05:23:04 Tdap 7 completed Not Available [facility] 03/24/2011 05:23:04 pneumococcal polysaccharide PPV23 8 completed Not Available [facility] 03/24/2011 05:21:55 influenza, unspecified formulation 8 completed Not Available [facility] 03/24/2011 05:22:13 Past Encounters Encounter ID Performer Location Encounter Start Date Encounter Closed Date Diagnosis/Indication Diagnosis SNOMED-CT Code Diagnosis ICD10 Code Diagnosis Note [id number] [facility] [place] [address] [place] [address] 02/01/2001 11:00:00 05/29/2008 02:02:29 [id number] [facility] [place] [address] [place] [address] 02/09/2001 10:15:00 05/29/2008 02:02:29 [id number] [facility] [place] [address] [place] [address] 03/24/2001 09:45:00 05/29/2008 02:02:29 [id number] [facility] [place] [address] [place] [address] 04/26/2002 11:08:09 05/29/2008 02:02:29 [id number] [facility] [place] [address] [place] [address] [place] [address] 10/16/2002 16:35:33 05/29/2008 02:02:29 [id number] [facility] [place] [address] [place] [address] 06/12/2003 10:03:19 06/13/2003 16:09:07 [id number] [facility] [place] [address] [place] [address] 12/25/2003 10:57:11 12/27/2003 17:37:25 [id number] [facility] [place] [address] [place] [address] 03/05/2004 16:32:24 03/05/2004 16:32:29 [id number] [facility] [place] [address] [place] [address] 07/31/2004 13:28:21 08/03/2004 09:21:01 [id number] [facility] [place] [address] [place] [address] 02/26/2005 11:35:11 03/02/2005 09:35:38 [id number] [facility] [place] [address] [place] [address] 08/17/2005 16:05:05 08/18/2005 15:12:46 [id number] [facility] [place] [address] [place] [address] 12/16/2005 11:40:55 12/17/2005 09:22:04 [id number] [facility] [place] [address] [place] [address] 09/14/2006 11:23:13 09/15/2006 07:41:34 [id number] [facility] - [facility] [address] [place] [address] [place] [address] 03/27/2007 09:01:50 03/27/2007 09:02:02 [id number] [facility], OFFICE [address] [place] [address] [place] [address] 04/18/2007 11:30:34 05/29/2008 02:02:29 [id number] LAB - [facility] [address] [place] [address] [place] [address] 05/16/2007 13:58:16 05/16/2007 14:07:12 [id number] LAB - [facility] [address] [place] [address] [place] [facility] [address] 09/14/2007 07:46:30 09/14/2007 07:58:40 [id number] [facility], OFFICE [address] [place] [address] [place] [address] 09/26/2007 09:30:54 05/29/2008 02:02:29 [id number] LAB - [facility] [address] [facility] [place] [facility] [address] 03/13/2008 08:38:43 03/13/2008 08:39:52 [id number] , [facility], OFFICE [address] [facility] [place] [facility] [address] 03/28/2008 08:56:39 05/29/2008 02:02:29 [id number] [facility], OFFICE [address] [facility] [place] [facility] [address] 08/08/2008 14:31:17 08/15/2008 08:51:03 [id number] Radiology , [facility] [address] [place] [address] 08/08/2008 15:38:22 08/09/2008 14:14:52 [id number] , [facility], OFFICE [address] [place] [address] [place] [facility] [address] 10/31/2008 09:35:06 11/07/2008 08:53:05 [id number] Radiology , [facility] [address] [place] [address] 11/04/2008 09:42:24 11/07/2008 07:52:56 [id number] [facility] - [address] [place] [facility] [address] 07/15/2008 08:37:32 07/15/2008 08:38:46 [id number] [facility] - [address] [place] [facility] [address] 10/22/2008 07:19:06 10/22/2008 07:27:31 [id number] [facility] - [address] [place] [facility] [place] [address] 12/17/2008 14:24:52 12/17/2008 14:35:26 Health Concerns Section Related Observation LastModified by Organization Detai ls LastModified Time None Recorded Concern Status LastModified by Organization Details LastModified Time None Recorded Advance Directives Directive Y: Payers Encounter Date Sequence Insurance Name Policy Number Policy Anne Covered Member ID Anne Member ID Guarantor Name 08/08/2008 1 [place] [employer] Bryson Hernandez [id number] Bryson Hernandez 10/22/2008 1 [place] [facility] [employer] Bryson Hernandez [id number] Bryson Hernandez 10/31/2008 1 [place] [employer] Bryson Hernandez [id number] Bryson Hernandez 11/04/2008 1 [place] [facility] [employer] Bryson Hernandez [id number] Bryson Hernandez 12/17/2008 1 [place] [facility] [employer] Bryson Hernandez [id number] Bryson Hernandez
[2024-09-04 13:12] LABS: MANUAL DIFF FLAG NO
[2024-09-04 13:28] LABS: Basophils Percent Auto 0.7 % (0-2); Eosinophils Absolute Auto 0.3 X10*3/uL (0.0-0.4); Eosinophils Percent Auto 5.8 % (0-4); Hematocrit 43.5 % (42.0-52.0); Hemoglobin 14.6 g/dl (14.0-18.0); Imm Gran Abs Auto 0.02 X10*3/uL (0.00-0.03); Imm Gran Pct Auto 0.4 % (0.0-0.4); Lymphocytes Absolute Auto 1.2 X10*3/uL (1.2-4.9); Lymphocytes Percent Auto 26.6 % (20-40); Mean Corpuscular HGB Conc 33.6 g/dl (31.0-36.0); Mean Corpuscular Hemoglobin 31.6 pg (27.0-33.0); Mean Corpuscular Volume 94.2 fL (80.0-98.0); Mean Platelet Volume 12.1 fL (9.4-12.4); Monocytes Absolute Auto 0.6 X10*3/uL (0.1-1.2); Monocytes Percent Auto 12.8 % (2-11); Neutrophils Absolute Auto 2.4 x10*3/uL (2.0-8.3); Neutrophils Percent Auto 53.7 % (45-73); Platelet Count 178 X10*3/uL (160-400); Red Blood Count 4.62 X10*6/uL (4.60-5.80); Red Cell Distribution Width 12.7 % (11.0-16.0); White Blood Count 4.5 X10*3/uL (4.8-10.8)
[2024-09-04 13:50] LABS: Alanine Aminotransferase 48 U/L (0-40); Albumin Level 3.9 g/dL (3.5-5.0); Alkaline Phosphatase 70 U/L (39-117); Anion Gap 12 (12-20); Aspartate Amino Transferase 45 U/L (5-37); Bilirubin Total 0.7 mg/dL (0.0-1.0); Blood Urea Nitrogen 23 mg/dL (9-16); Calcium 9.6 mg/dL (8.4-10.2); Carbon Dioxide 28 mmol/L (22-29); Chloride 104 mmol/L (96-108); Cholesterol 119 mg/dL (<200); Estimated Glomerular Filt Rate > 60; Glucose Fasting 221 mg/dL (60-99); HDL Cholesterol 52 mg/dL (>40); LDL Cholesterol Calculated 48 mg/dL (<100); Potassium 4.5 mmol/L (3.3-5.1); Sodium 139 mmol/L (135-145); Total Protein 6.7 g/dL (6.5-8.0); Triglycerides 96 mg/dL (<150)
== END 2024-09-04 08:20 | disposition home or self-care (01) ==
LOC: HO.MANLDS 08:19
PROVIDERS: Visit Provider Internal Medicine
DX: E11.9 Type 2 diabetes mellitus without complications (principal); E78.5 Hyperlipidemia, unspecified
CPT/HCPCS: 36415; 80053; 80061; 85025

== ENCOUNTER 2024-11-20 07:46 | Outpatient (REF) | payer BC, MEDICARE, SELFPAY ==
--- OUTSIDE RECORDS SUMMARY | 2024-11-20 07:49 | XMS_ITS | Data Portability ---
Author Organization [facility] Internal Medicine, Telehealth Patient Home Address [address] [place] [address] Assessment Encounter Date Assessment Date Assessment LastModified by Organization Details LastModified Time 08/03/2023 08/03/2023 [id number] [place] [address] (PLATER PRODUCTION) [facility] MODERATE MUST MEET 2 OUT OF [...] COVERED Not available 08/03/2023 12:01:58 10/19/2023 10/19/2023 [address] [place] [address] (PLATER PRODUCTION) [facility] MODERATE MUST MEET 2 OUT OF 3 [...] COVERED Not available 10/19/2023 10:42:56 01/31/2024 01/31/2024 [id number] [place] [address] (PLATER PRODUCTION) [facility] MODERATE MUST MEET 2 OUT OF [...] COVERED Not available 01/31/2024 14:44:40 05/30/2024 05/30/2024 [address] [place] [address] (PLATER PRODUCTION) [facility] MODERATE MUST MEET 2 OUT OF [...] THAT IS COVERED Not available 05/30/2024 11:02:43 09/05/2024 09/05/2024 [address] [place] [address] (PLATER PRODUCTION) [facility] MODERATE MUST MEET 2 OUT OF [...] EACH ELEMENT THAT IS COVERED Not available 09/05/2024 11:26:43 Plan of Treatment Reminders Order Date Submit Date Provider Last Modified By Organization Details Last Modified Time Details Appointments FOLLOW UP 15 2024 01:45P M DR GARCIA Not available Not available Not available MEDICARE ANNUAL WELLNESS 2024 10:30A M DR GARCIA Not available Not available Not available Lab HbA1c (hemoglob in A1c), blood 2023 024 [facility], [address] [place] [address], [place], [address], 01/31/2024 15:04:19 Referral hand surgeon referral 2024 025 uche Ventura MD, [address] [place] [address], [address], 10/03/2024 09:16:02 Procedures None recorded. Surgeries None recorded. Imaging None recorded. Medication Orders glipizide 5 mg tablet 2024 025 [id number], [address], [place], [id number], 09/14/2024 14:44:06 glipizide 5 mg tablet 2023 024 [facility][id number], [address], [place], [id number], 09/14/2024 14:43:57 desonide 0.05 % topical cream 2023 024 [facility] [employer] #[id number], [address], [place], [id number], 01/31/2024 15:00:06 Patient TargetsNo targets recorded. Patient Instructions Encounter Date Encounter Id Patient Instructions Last Modified By Organization Details Last Modified Time 01/31/2024 [id number] learning about type 2 diabetes Not available 01/31/2024 14:56:12 type 2 diabetes: care instructions Not available 01/31/2024 14:56:12 09/05/2024 [id number] pulse oximetry* Not available 09/05/2024 11:29:41 dizziness: care instructions Not available 09/05/2024 11:29:41 Reason for Referral Hand Surgeon Referral for Tr iggering of digit Referring Physician: Samson Garcia, Internal Medicine, Encounter Date: 09/05/2024 Results Created Date Observation Date Name Description Value Unit Range Abnormal Flag Note LastModifiedBy Organization Detail LastModifiedTime 05/23/19 25 05/23/2024 HbA1c (hemo globi n A1c), blood A1C 8.6 abnormal Not Available [facility] (Outpatient) [address] [place], [address], 05/23/2024 12:37:51 09/06/1909/05/2024 pulse oxime try* Result 93 Not Available [facility] Internal [facility] [address] [facility] [address], [place], [address], 09/02/2024 19:54:10 Result Notes None recorded. Problems Name Problem SNOMED Code Status Onset Date Resolution Date Notes Provider Name and Address Organization Details Recorded Time Type 2 diabetes mellitus 33689626 Active 2017 Samson Garcia, DO [address] [place], [address], [facility] 5 16:01:38 Hyperten sive disorder 69974615 Active 2017 Not Available [facility] 2 12:35:33 Benign prostati c hyperpla myron 984465804 Active 2017 Not Available [facility] 2 12:35:33 Hyperlip idemia 56744829 Active 2017 Not Available [facility] 2 12:35:33 Primary erectile dysfunct ion 776944465 Active 2017 Not Available [facility] 2 12:35:33 History of tobacco use 81818881053 03 Active 2017 quit 1998 x 42 years Not Available [facility] 2 12:35:33 Ischemic heart disease 721130525 Active 2017 s/p circumfle x stent 2013 Not Available [facility] 2 12:35:33 Ulcer of toe 673381362 Active 2017 resolved Not Available [facility] 2 12:35:33 Eczema 06159888 Active 2017 Not Available [facility] 2 12:35:33 Vertigo 023111119 Active 2018 Not Available [facility] 2 12:35:33 Multiple actinic keratose s 416014842 Active 2018 Not Available [facility] 2 12:35:33 Babesios is 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 Active 2022 Samson Garcia, DO [address] [place] [address], [address], [facility] 3 14:03:32 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 2022 Samson Garcia, DO [address] [place] [address], [address], [facility] 3 14:03:53 Splenome lety 93899001 Active 2022 Samson Garcia, DO [address] [place] [address], [address], [facility] 3 14:06:20 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 Samson Garcia, DO [address] [place] [address], [address], [facility] 3 14:06:33 Infectio n by Babesia microti 43689451 Active 2022 Samson Garcia DO [address] [place] [address], [address], [facility] 3 17:43:38 Infectio n of tick bite 300647998 Active 2023 Samson Garcia, DO [address] [place], [address], [facility] 4 13:39:18 Tinea corporis 10449115 Active 2023 Samson Garcia, DO [address] [place], [address], [facility] 4 14:57:38 Dizzines s 864285757 Active 2024 Samson Garcia, DO [address] [place] [address], [address], [facility] 5 11:22:29 Triggeri ng of digit 960569851 Active 2024 Samson Garcia, DO [address] [place] [address], [address], [facility] 5 11:34:35 Problem Notes None recorded. Medical Equipment None [...] Not Available Not Available No t Available azithromyci n 250 mg tablet 01/19 completed [...] TAKE 1 TABLET BY MOUTH TWICE DAILY 09/14 completed Not Available Not Available Not Available atovaquone 750 mg/5 mL oral suspension [...] Not Available Not Available No t Available Januvia 100 mg tablet TAKE 1 TABLET BY MOUTH EVERY DAY 2024 active Not Available Not Available Not Avai lable GaviLyte-G 236 gram-22.74 gram-6.74 gram-5.86 gram oral solution 03/29 completed Not Available Not Available Not Available OneTouch Verio test strips USE 1 STRIP DIRECTED TO TEST BLOOD SUGAR TWICE DAILY active Not Available Not Available No t Available Jardiance 10 mg tablet TAKE 1 TABLET BY MOUTH EVERY DAY 12/22 completed Not Available Not Available Not Available Jardiance 25 mg tablet Take 1 tablet every day by oral route as directed for 30 days. 09/14 completed Not Available Not Available Not Available Shingrix (PF) 50 mcg/0.5 mL intramuscul ar suspension, kit 09/20 completed Not Available Not Available Not Available Fluzone High-Dose 0510-8094 (PF) 180 mcg/0.5 mL intramuscul ar syringe 03/29 completed Not Available Not Available Not Available Fluad Quad 9437-0754(6 5yr up)(PF) 60 mcg (15 mcg x 4)/0.5mL IM syringe 02/26 completed Not Available Not Available Not Available Vitals Date Recorded Body height Body mass index (BMI) Body weight Heart rate Oxygen saturation Oxygen saturation in Arterial blood by Pulse oximetry Systolic And Diastolic Provider Name and Address Organization Details Last Updated DateTime 5 190.5 cm 28.7 kg/m2 857721. 25 g 70 /min 96 % 96 % 124/58 mm[Hg] Gaby Herrera [facility] 5 10:43:14 Date Recorded Body height Body mass index (BMI) Body weight Heart rate Oxygen saturation Oxygen saturation in Arterial blood by Pulse oximetry Systolic And Diastolic Provider Name and Address Organization Details Last Updated DateTime 4 190.5 cm 28.1 kg/m2 501918. 85 g 4 /min 96 % 96 % 132/78 mm[Hg] Mandy Guzmán [facility] 4 11:37:55 Date Recorded Body height Body mass index (BMI) Body weight Heart rate Oxygen saturation Oxygen saturation in Arterial blood by Pulse oximetry Systolic And Diastolic Provider Name and Address Organization Details Last Updated DateTime 5 190.5 cm 28.7 kg/m2 454157. 25 g 70 /min 93 % 93 % 128/68 mm[Hg] Gaby Herrera [facility] 5 11:03:24 Date Recorded Body height Body mass index (BMI) Body weight Heart rate Oxygen saturation Oxygen saturation in Arterial blood by Pulse oximetry Systolic And Diastolic Provider Name and Address Organization Details Last Updated DateTime 4 190.5 cm 27.9 kg/m2 348989. 1 g 59 /min 97 % 97 % 112/68 mm[Hg] Mandy Guzmán [facility] 4 10:18:38 Date Recorded Body height Body mass index (BMI) Body weight Heart rate Oxygen saturation Oxygen saturation in Arterial blood by Pulse oximetry Systolic And Diastolic Provider Name and Address Organization Details Last Updated DateTime 4 190.5 cm 27.9 kg/m2 435261. 1 g 94 /min 95 % 95 % 120/68 mm[Hg] Gaby Herrera [facility] 4 14:29:10 Social History Question Answer Notes LastModified by [employer] ion Details LastModified Time Tobacco Smoking Status Former Smoker Not Available [facility] 03/11/2020 03:36:24 What Was The Date Of Your Most Recent Tobacco Screening? 09/05/2024 [email or web address] Information not available 09/05/2024 Sex: Unknown Functional Status Question Answer Note LastModified by Organization D etails LastModified Time Do you or have you ever used any other forms of tobacco or nicotine? No [email or web address] Information not available 12/22/2022 Mental Status None recorded. Family History Nothing Reported. Medical History No medical history recorded. Immunizations Vaccine Type Date Status Note Provider Nam e and Address Organization Details Recorded Time COVID-19, mRNA, LNP-S, PF, 30 mcg/0.3 mL dose 1 completed Not Available [facility] 12/21/2022 21:53:52 Influenza, split virus, quadrivalent, preservative 8 completed Not Available [facility] 12/21/2022 21:53:51 Influenza, split virus, quadrivalent, preservative 1 completed Not Available [facility] 12/21/2022 21:53:52 COVID-19, mRNA, LNP-S, PF, 30 mcg/0.3 mL dose 2 completed Not Available [facility] 12/21/2022 21:53:52 influenza, unspecified formulation 2 completed Not Available [facility] 12/21/2022 21:53:52 Influenza, split virus, quadrivalent, preservative 9 completed Not Available [facility] 12/21/2022 21:53:51 Influenza, split virus, quadrivalent, preservative 0 completed Not Available [facility] 12/21/2022 21:53:51 COVID-19, mRNA, LNP-S, PF, 30 mcg/0.3 mL dose 1 completed Not Available [facility] 12/21/2022 21:53:52 COVID-19, mRNA, LNP-S, PF, 30 mcg/0.3 mL dose 1 completed Not Available [facility] 12/21/2022 21:53:52 Tdap 5 completed Not Available [facility] 12/21/2022 21:53:52 pneumococcal polysaccharide PPV23 7 completed Not Available [facility] 12/21/2022 21:53:52 Pneumococcal conjugate PCV 13 5 completed Not Available [facility] 12/21/2022 21:53:52 zoster recombinant 9 completed Not Available [facility] 12/21/2022 21:53:52 Past Encounters Encounter ID Performer Location Encounter Start Date Encounter Closed Date Diagnosis/Indication Diagnosis SNOMED-CT Code Diagnosis ICD10 Code Diagnosis Note [id number] Samson Garcia DO [facility] [address] [facility],[place] [address] 12/14/2017 08:57:40 12/14/2017 10:00:07 Type 2 diabetes mellitus 52126644 E11.9 needs a1c done Hypertensive disorder 38 517138 I10 bps are excellent no change in meds Ischemic h eart disease 831442635 I25.9 completely asymptomat ic and stable with current meds [id number] Samson Garcia DO [facility] [address] [facility],[place] [address] 03/29/2018 10:22:39 03/29/2018 12:19:03 Hypertensive disorder 57458601 I10 bps are excellent no change in meds Type 2 charles betes mellitus 57508084 E11.9 a1c is elevated at 7.1 and admits to eating lots of carbs will tyr to be better and will change diet as we discussed Abdominal aortic aneurysm screening 479829495 Z13.6 [id number] Samson Garcia [facility] Internal Medicine [address] [facility],[place] [address] 05/19/2018 14:49:21 05/19/2018 15:35:45 Type 2 diabetes mellitus 59112989 E11.9 Vertigo 858360487 R42 conferred with MB who agrees presents similar to labyrinthi tis/paroxy smal vertigo pt asymptomat ic at this oint but will rx treatment just in case sx return over the weekend [id number] Samson Garcia [facility] Internal [facility] [address] [facility],[place] [address] 07/05/2018 09:56:32 07/05/2018 11:24:51 Type 2 diabetes mellitus 83584069 E11.9 a1c is elevated at 7.1 and admits to eating lots of carbs will tyr to be better and will change diet as we discussed Hypertensive disorder 38 508987 I10 bps are excellent no change in meds Abdominal aortic aneurysm screening 923391809 Z13.6 [facility] he have this done Samson Garcia [facility] Internal Medicine [address] [facility],[place] [address] 09/20/2018 11:07:55 09/20/2018 12:06:38 Hypertensive disorder 17409287 I10 bps are excellent no change in meds Type 2 charles betes mellitus 86036540 E11.9 a1c is elevated at 7.1 and admits to eating lots of carbs will tyr to be better and will change diet as we discussed Hyperlipidemia 27108597 E78.5 Ulcer of toe 427978305 L 97.509 will refill for mupirocin Ischemic h eart disease 583656171 I25.9 completely asymptomat ic and stable with current meds [id number] Samson Garcia [facility] [address] [facility],[place] [address] 12/27/2018 11:26:22 12/27/2018 11:58:36 Hypertensive disorder 90356509 I10 bps are excellent no change in meds Type 2 charles betes mellitus 38688550 E11.9 a1c is elevated at 7.2 and admits to eating lots of carbs will tyr to be better and will change diet as we discussed Ischemic h eart disease 212059677 I25.9 completely asymptomat ic and stable with current meds Vertigo 613758099 R42 cont mecliz Ulcer of toe 242366284 L 97.509 will refill for mupirocin Multiple a ctinic keratoses 581948368 L57.0 has multiple new lesion adn some changes on a ear pinna lesion [id number] Samson Garcia [facility] [address] [facility], [place] [employer] [place] [place] [address] 03/28/2019 11:27:40 03/28/2019 12:10:21 Hypertensive disorder 98176495 I10 bps are excellent no change in meds Type 2 charles betes mellitus 77847028 E11.9 a1c is still elevated at 7.0 and was 7.2 and will change diet as we discussed Multiple a ctinic keratoses 322879467 L57.0 has multiple new lesion adn some changes on a ear pinna lesion Ischemic h eart disease 672517132 I25.9 completely asymptomat ic and stable with current meds is off the clopidigre l [id number] Samson Garcia [facility] Internal [facility] [address] [facility], [place] [address] 07/04/2019 11:28:39 07/04/2019 12:05:08 Type 2 diabetes mellitus 74803757 E11.9 a1c is still elevated at 7.8 and prior at 7.0 and was 7.2 and will change diet as we discussed Hypertensive disorder 38 365049 I10 bps are excellent no change in meds Active or passive immunization 214441792 Z23 [id number] Samson Garcia [facility] [address] [facility] [address], [place] [facility] [place] [address] 12/05/2019 09:58:28 12/05/2019 11:48:35 Multiple actinic keratoses 449211140 L57.0 has multiple new lesion adn some changes on a ear pinna lesion but this is getting improved overall Benign pro static hyperplasia 546111595 N40.0 stable and about the same Hypertensive disorder 38 419746 I10 bps are excellent no change in meds Ischemic h eart disease 117951400 I25.9 completely asymptomat ic and stable with current meds is off the clopidigre l Type 2 charles betes mellitus 22304722 E11.9 a1c is better at 7.3 was 7.8 and prior at 7.0 and was 7.2 and will change diet as we discussed [id number] Samson Garcia [facility] [address] [facility],[place] [address] 12/28/2019 10:55:27 12/28/2019 11:42:01 Cellulitis 060204541 L03.90 will start on doxy and pred given length of time he has had the reaction to the bite will treat 10 days given amount of time this has been going on Infected insect bite 262 502503 L08.9 not sure, says it may of been a spider but doesn't know [id number] Samson Garcia [facility] [address] [facility],[place] [employer] [place] [address] 02/27/2020 11:13:24 02/27/2020 12:32:09 Hypertensive disorder 66815360 I10 bps are excellent no change in meds Type 2 charles betes mellitus 20999260 E11.9 a1c is 7.7 at 7.3 was 7.8 and prior at 7.0 and was 7.2 and will change diet as we discussed Ulcer of toe 320818566 L 97.509 will refill for mupirocin Eczema 11404592 L30.9 [id number] Samson Garcia [facility] [address] [facility],[place] [address] 07/16/2020 15:56:26 07/16/2020 16:33:16 Hypertensive disorder 75854695 I10 bps are excellent no change in meds Type 2 charles betes mellitus 58142565 E11.9 a1c is now 7.1 and in february was 7.7 at 7.3 was 7.8 and prior at 7.0 and was 7.2 and had changed diet as we discussed and had been more careful ur microalb is negative Ischemic h eart disease 285769151 I25.9 completely asymptomat ic and stable with current meds is off the clopidigre l Benign pro static hyperplasia 712661188 N40.0 stable and about the same awake every 4 hours or so but he is stable [id number] Samson Garcia [facility] [address] [facility],[place] [employer] [place], [place] 7 10/28/2020 11:54:47 10/28/2020 12:22:13 Ulcer of toe 425425755 L97.509 will refill for mupirocin but ut us healed quite well Hypertensive disorder 38 097611 I10 bps are excellent no change in meds Type 2 charles betes mellitus 57712038 E11.9 a1c is now 7.3 and was 7.1 and in february was 7.7 at 7.3 was 7.8 and prior at 7.0 and was 7.2 and had changed diet as we discussed and had been more careful ur microalb is negative [id number] Samson Garcia [facility] [address] [facility],[place] [employer] [place], [place] 7 03/04/2021 11:07:37 03/04/2021 14:32:12 Hypertensive disorder 77912018 I10 bps are excellent no change in meds Type 2 charles betes mellitus 08946711 E11.9 a1c is now 7.4 was 7.3 and was 7.1 and in february was 7.7 at 7.3 was 7.8 and prior at 7.0 and was 7.2 and had changed diet as we discussed and had been more careful ur microalb is negative Hyperlipidemia 47343505 E78.5 superb with an LDL of 38 and HDL 52 Ischemic h eart disease 087840959 I25.9 completely asymptomat ic and stable [place] [id number] Samson Garcia [facility] [address] [facility] [address] 07/13/2021 14:01:47 07/13/2021 15:33:39 Type 2 diabetes mellitus 08752472 E11.9 a1c is now 7.7 and was 7.4 was 7.3 and was 7.1 and in february 2021 was 7.7 at 7.3 was 7.8 and prior at 7.0 and was 7.2 changed diet as we discussed and had been more careful ur microalb is negative Hypertensive disorder 38 045643 I10 bps are excellent no change in meds Ulcer of toe 100825510 L 97.509 will refill for mupirocin but ut us healed quite well Impetigo 10553191 L01.00 on scalp using mupiorocin to tx without response we will change to doxycyc Body mass index 25-29 - overweight 448785605 Z68.29 done [id number] Samson Garcia [facility] [address] [facility],[place] [address] 01/20/2022 10:31:07 01/20/2022 14:38:49 Type 2 diabetes mellitus 72606765 E11.9 a1c is now back to 7.4 and prior was 7.7 and was 7.4 was 7.3 and was 7.1 and in february 2021 was 7.7 at 7.3 was 7.8 and prior at 7.0 and was 7.2 changed diet as we discussed and had been more careful ur microalb is negative Hypertensive disorder 38 715365 I10 bps are excellent no change in meds [id number] Samson Garcia [facility] [address] [facility],[place] [address] 04/26/2022 10:34:04 04/26/2022 11:37:18 Type 2 diabetes mellitus 22443702 E11.9 a1c is pending PRIOR he was back to 7.4 and prior was 7.7 and was 7.4 was 7.3 and was 7.1 and in february 2021 was 7.7 at 7.3 was 7.8 and prior at 7.0 and was 7.2 changed diet as we discussed and had been more careful ur microalb is negative Hyperlipidemia 34231369 E78.5 superb with an LDL of 38 and HDL 52 Hypertensive disorder 38 298774 I10 bps are excellent no change in meds [id number] Samson Garcia [facility] [address] [facility], [address] [facility] [place] [address] 07/14/2022 09:34:25 07/14/2022 14:05:58 Hypertensive disorder 65780016 I10 bps are excellent no change in meds Type 2 charles betes mellitus 66537003 E11.9 a1c is up to 7.8 was 7.7 in the fall and 7.8 in july last year c mp was good kidneys are good ur microalb is negative Ischemic h eart disease 376575995 I25.9 completely asymptomat ic and stable with current medsno cp no sob Ulcer of toe 537224832 L 97.509 will refill for mupirocin but ut us healed quite well Advance care planning 71 6948781 Z71.89 utd [id number] Samson Garcia [facility] Internal [facility] [address] [facility], [place] [address] 09/22/2022 11:00:35 09/22/2022 12:30:27 Type 2 diabetes mellitus 85897491 E11.9 a1c has been stable prior had been up to 7.8 was 7.7 in the fall and 7.8 in july last year c mp was good kidneys are good ur microalb is negative Hypertensive disorder 38 533154 I10 bps are excellent no change in meds Ulcer of toe 252418023 L 97.509 but ut us healed quite well [id number] Samson Garcia [facility] [address] 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 83979238 B60.01 assoc with hemolysis, anemia, splenic infarcts, and renal insufficie ncy Infection by Babesia microti 81155323 B60.01 resolved now finsihing 10 full days of abx and is good and appears Ischemic h eart disease 936429680 I25.9 completely asymptomat ic and stable with current medsno cp no sob Type 2 charles betes mellitus [id number] E11.9 his sugars will be elevated and will be doing ok after he gets back on his feet ur microalb is negative [id number] Samson Garcia DO [facility] [address] [facility],[place] [address] 01/19/2023 11:30:28 01/19/2023 13:20:11 Hyperlipidemia 34815089 E78.5 superb with an LDL of 38 and HDL 52 Hypertensive disorder 38 960362 I10 bps are excellent no change in meds Ischemic h eart disease 576696058 I25.9 completely asymptomat ic and stable with current medsno cp no sob Babesiosis [id number] B60. 00 now resolved Type 2 charles betes mellitus 62620888 E11.9 a1c is 5.5 and is doing great eating better now and told him to back off on junk food ur microalb is negative [id number] Samson Garcia DO [facility] [address] [facility] [address],[place] [address] 03/01/2023 14:45:19 03/01/2023 15:54:06 Ischemic heart disease 172423959 I25.9 completely asymptomat ic and stable with current medsno cp no sob Hypertensive disorder 38 955072 I10 bps are excellent no change in meds Type 2 charles betes mellitus 74776696 E11.9 a1c is 5.3 and is doing great eating better now and told him to back off on junk food ur microalb is negative [id number] Samson Garcia [facility] Internal Medicine [address] [facility] [facility],[place] [address] 04/20/2023 11:08:25 04/20/2023 13:34:10 Hypertensive disorder 85920956 I10 bps are excellent no change in meds Ischemic h eart disease 550100564 I25.9 completely asymptomat ic and stable with current medsno cp no sob Type 2 charles betes mellitus 19975640 E11.9 a1c is elevated to 8.6 now after eating well from babesiosis and is doing great with his albumin and protein is better now and told him to back off on junk food ur microalb is negative [id number] [facility]on [facility]Kashif [facility] [address] [facility] [address], [place] [address] 08/03/2023 11:21:44 08/03/2023 13:47:12 Type 2 diabetes mellitus 72173877 E11.9 a1c is elevated to8.0 prior when sick was5.5 prior 8.6 now after eating well from babesiosis and is doing great with his albumin and protein is better now and told him to back off on junk food ur microalb is negative Hypertensive disorder 38 900961 I10 bps are excellent no change in meds Hyperlipidemia 94065392 E78.5 superb with an LDL of 38 and HDL 52 Ischemic h eart disease 594887476 I25.9 completely asymptomat ic and stable with current medsno cp no sob [id number] Samson VenegasKashif [facility] [address] [facility], [place] [address] 10/19/2023 10:11:13 10/19/2023 10:51:44 Hyperlipidemia 85762631 E78.5 superb with an LDL of 38 and HDL 52 Type 2 charles betes mellitus 76411242 E11.9 a1c is 8.0 was elevated to 8.0 prior when sick was 5.5 prior 8.6 now after eating well from babesiosis and is doing great with his albumin and protein is better now and told him to back off on junk food ur microalb is negative Hypertensive disorder 38 702610 I10 bps are excellent no change in meds Depression screening 171 622947 Z13.31 SCREENING NEGATIVE [id number] Samson Garcia [facility] Medicine [address] [facility] [place], it[address] 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 Medicine [address] [facility], [place] [facility] [place] [address] 05/30/2024 10:28:31 05/30/2024 11:16:22 Hyperlipidemia 50969918 E78.5 superb with an LDL of 38 and HDL 52 Hypertensive disorder 38 066671 I10 bps are excellent no change in meds Type 2 charles betes mellitus 91824234 E11.9 a1c is 8.6 was 8.0 relates [...] microalb is negative Ischemic h eart disease 607422826 I25.9 completely asymptomat ic and stable with current medsno cp no sob [id number] Samson Garcia [facility] Internal Medicine [address] [facility], [place] [facility] [place] [address] 09/05/2024 10:52:14 09/05/2024 12:01:14 Hyperlipidemia 76156570 E78.5 superb with an LDL of 38 and HDL 52 Hypertensive disorder 38 060632 I10 bps are excellent no change in meds Ischemic h eart disease 699825805 I25.9 completely asymptomat ic and stable with current medsno cp no sob Type 2 charles betes mellitus 35708317 E11.9 a1c is now 8.9 he has trouble with portion control we [place] have to see if the glipizide is an issue 8.6 was 8.0 relates he has not [...] on junk food ur microalb is negative Depression screening 171 315077 Z13.31 SCREENING NEGATIVE Dizziness 838903406 R42 noted since on the glipizide so he will hold for 5 days and if this works [place] try a diff medif not then we will decreases the isosorbide to half and see if that helps Triggering of digit 2399 79377 M65.342 will need to get treated Health Concerns Section Related Observation LastModified by Organization Detai ls LastModified Time None Recorded Concern Status LastModified by Organization Details LastModified Time None Recorded Advance Directives Directive None Recorded Payers Insurance Date Sequence Insurance Name Policy Number Policy Anne Covered Member ID Anne Member ID Guarantor Name 09/14/2024 1 [place] [facility] (O) [id number] Bryson Hernandez [id number] Bryson Hernandez 11/18/2024 2 [place] [id number] Bryson Hernandez [id number] Bryson Hernandez 11/15/2024 1 [place] [employer] Bryson Hernandez [id number] Bryson Hernandez Notes Date Note Type Note Provider Name and Address Organization Details Recorded Time 08/03/19 24 text/htm l Care Management - DiabetesReported bypatient.Self [...] ok 2 x nocturia Samson Garcia DO [address] [place], [address], [facility] 08/03/2023 12:07:34 10/19/19 24 text/htm l Care Management - DiabetesReported bypatient.Self [...] no soblight headedness is gone babesiosis is uyawi0a is pending Samson Garcia DO [address] [place], [address], [facility] 10/19/2023 10:49:45 01/31/20 24 text/htm l Care Management - DiabetesReported bypatient.Self [...] okvoid is ok Samson Garcia DO [address] [place], [address], [facility] 01/31/2024 15:03:30 05/30/19 25 text/htm l Care Management - DiabetesReported bypatient.Self [...] is very active Samson Garcia DO [address] [place], [address], [facility] 05/30/2024 11:12:33 09/06/19 25 text/htm l Care Management - Coronary Artery Disease (CAD)Reported bypatient.Self Care:not under emotional stress Severity:symptoms are improving; does not interfere with daily activities Associated Symptoms:no chest pain; no shortness of breath; no left arm pain; no back pain; no neck pain; no left shoulder pain; no right shoulder pain; no numbness; no sweatsCare Management - HyperlipidemiaReported bypatient.Control:usually well controlled; improving; at goal Complications:no coronary artery disease; no heart attack; no cardiovascular disease; no pancreatitis; no strokeCare Management - HypertensionReported bypatient.Self Care:not under emotional stress Severity:symptoms are improving; does not interfere with daily activities Associated Symptoms:no dizziness; no lightheadedness; no chest pain; no shortness of breath; no palpitations; no edema; no calf muscle cramps; no blurred vision; no confusion; no headaches; no fatigue HERE FOR RECHK AND IS DOING OK OVERALLrelates that he has been lightheaded since on the glipizide a1c is 8.9 relates that he is eating a lot of nuts but he has an issue with portion control Samson Garcia, DO [address] [facility], [place], [address], [facility] 09/05/2024 11:39:11
--- OUTSIDE RECORDS SUMMARY | 2024-11-20 07:49 | XMS_ITS | Clinical Summary ---
Author Organization [facility] ity Address [address] [place] [address] Care Team Providers Care Casing Operator Name Role Phone Samson Trinidad DO Primary Care Provider [phone] Medications isosorbide mononitrate (IMDUR) 30 mg 24 hr tablet Take 1 tablet (30 mg total) by mouth 1 (one) time each day. 90 tablet 2 07/27/2024 Active lisinopriL (PRINIVIL,ZESTRI L) 2.5 mg tablet TAKE 1 TABLET BY MOUTH DAILY 90 tablet 1 10/08/2024 Active Medical History Medical History Date Comments Multiple [...] Height 190.5 cm (6' 3 ) 02/07/2024 1:2 9 PM EDT Body Mass Index 28.06 02/07/2024 1:29 PM EDT Plan of Treatment Upcoming Encounters Date Type Department Care Team (Late st Contact Info) Description 02/26/2025 1:30 PM EDT Office Visit [facility] Cardiology [facility] [address] [place] [address] [address] [place] [id number] Ben Lucero MD [address] [place] [address] [address],[facility] [address] [place] [address] Health Maintenance Due Date Last Done Comments Diabetes: Annual Foot Exam 1950 Diabetes: Annual Retina Eye Exam 1950 RSV Immunization Adult Patients (1 - 1-dose 75+ series) 2017 Zoster Vaccines (2 of 2) 10/26/2018 08/31/2018 Depression Screening 04/18/2022 Falls Risk Assessment 04/18/2022 Medicare Annual Wellness Visit 04/18/2022 Social Influencers of Health Screening 04/18/2022 COVID-19 Vaccine ( season) 2024 08/13/2021, 02/20/2021, 07/10/2020, Additional history exists Diabetes: Annual Urine Albumin-Creatinine Ratio (uACR) 10/08/2024 08/05/2017 Diabetes: Blood Sugar Control Test (HGBA1C) 10/08/2024 Influenza Vaccine (#1) 2025 , 05/07/2021, 12/28/2019, Additional history exists DTaP,Tdap,and Td Vaccines (2 - Td or Tdap) 01/23/2025 01/23/2015 Diabetes: Annual GFR (Glomerular Filtration Rate) 05/23/2025 05/23/2024, 12/21/2022, 12/20/2022 Hypertension/CHF/CAD Annual BMP Blood Test 05/23/2025 05/23/2024, 12/21/2022, 12/20/2022 Cholesterol Screening (Lipid Panel) 05/23/2029 05/23/2024 Pneumococcal Vaccine: 50+ Years Completed 02/03/2017, 01/23/2015 HIB Vaccines Aged Out No longer eligi [...] 20 months Aged Out No longer eligible based on patient's age to complete this topic Varicella Vaccines Aged Out No longer eligible based on patient's age to complete this topic Insurance MEDICARE Care Teams Casing Operator Relationship Specialty Start Date End Date Samson Trinidad DO [address] [facility] [address] [place], [place] PCP - General 05/31/13
[2024-11-20 13:51] LABS: MANUAL DIFF FLAG NO
[2024-11-20 13:58] LABS: Hematocrit 41.2 % (42.0-52.0); Hemoglobin 14.0 g/dl (14.0-18.0); Imm Gran Abs Auto 0.03 X10*3/uL (0.00-0.03); Imm Gran Pct Auto 0.6 % (0.0-0.4); Lymphocytes Absolute Auto 1.3 X10*3/uL (1.2-4.9); Mean Corpuscular HGB Conc 34.0 g/dl (31.0-36.0); Mean Corpuscular Hemoglobin 31.3 pg (27.0-33.0); Mean Corpuscular Volume 92.0 fL (80.0-98.0); NRBC Abs Auto 0.000 X10*3/uL (0.0-0.012); NRBC Pct Auto 0.0 /100WBC (0.0-0.2); Platelet Count 174 X10*3/uL (160-400); Red Blood Count 4.48 X10*6/uL (4.60-5.80); White Blood Count 4.9 X10*3/uL (4.8-10.8)
[2024-11-20 14:15] LABS: Hemoglobin A1C 286.9131 umol/L; Total Hemoglobin (HGBA1C) 3678.8344 umol/L
[2024-11-20 14:28] LABS: Alanine Aminotransferase 32 U/L (0-40); Albumin Level 3.9 g/dL (3.5-5.0); Alkaline Phosphatase 70 U/L (39-117); Anion Gap 12 (12-20); Aspartate Amino Transferase 27 U/L (5-37); Blood Urea Nitrogen 20 mg/dL (9-16); Calcium 9.8 mg/dL (8.4-10.2); Carbon Dioxide 27 mmol/L (22-29); Chloride 106 mmol/L (96-108); Cholesterol 135 mg/dL (<200); Estimated Glomerular Filt Rate > 60; HDL Cholesterol 54 mg/dL (>40); Potassium 4.3 mmol/L (3.3-5.1); Sodium 141 mmol/L (135-145); Total Protein 6.4 g/dL (6.5-8.0); Triglycerides 125 mg/dL (<150)
== END 2024-11-20 07:47 | disposition home or self-care (01) ==
LOC: HO.MANLDS 07:46
PROVIDERS: Visit Provider Internal Medicine
DX: E11.9 Type 2 diabetes mellitus without complications (principal); E78.5 Hyperlipidemia, unspecified
CPT/HCPCS: 36415; 80053; 80061; 83036; 85025

== ENCOUNTER 2025-02-25 10:17 | Outpatient (REF) | payer BC, MEDICARE, SELFPAY ==
[2025-02-25 13:22] LABS: MANUAL DIFF FLAG NO
[2025-02-25 13:32] LABS: Hematocrit 46.1 % (42.0-52.0); Hemoglobin 15.1 g/dl (14.0-18.0); Imm Gran Abs Auto 0.03 X10*3/uL (0.00-0.03); Imm Gran Pct Auto 0.6 % (0.0-0.4); Lymphocytes Absolute Auto 1.1 X10*3/uL (1.2-4.9); Mean Corpuscular HGB Conc 32.8 g/dl (31.0-36.0); Mean Corpuscular Hemoglobin 30.9 pg (27.0-33.0); Mean Corpuscular Volume 94.5 fL (80.0-98.0); NRBC Abs Auto 0.000 X10*3/uL (0.0-0.012); NRBC Pct Auto 0.0 /100WBC (0.0-0.2); Platelet Count 192 X10*3/uL (160-400); Red Blood Count 4.88 X10*6/uL (4.60-5.80); White Blood Count 5.0 X10*3/uL (4.8-10.8)
[2025-02-25 13:56] LABS: Alanine Aminotransferase 29 U/L (0-40); Albumin Level 4.4 g/dL (3.5-5.0); Alkaline Phosphatase 75 U/L (39-117); Anion Gap 11 (12-20); Aspartate Amino Transferase 31 U/L (5-37); Blood Urea Nitrogen 21 mg/dL (9-16); Calcium 9.6 mg/dL (8.4-10.2); Carbon Dioxide 28 mmol/L (22-29); Chloride 105 mmol/L (96-108); Cholesterol 127 mg/dL (<200); Estimated Glomerular Filt Rate > 60; HDL Cholesterol 55 mg/dL (>40); Potassium 4.8 mmol/L (3.3-5.1); Sodium 139 mmol/L (135-145); Total Protein 7.2 g/dL (6.5-8.0); Triglycerides 87 mg/dL (<150)
[2025-02-25 14:37] LABS: Hemoglobin A1C 241.5532 umol/L; Total Hemoglobin (HGBA1C) 3845.8285 umol/L
== END 2025-02-25 10:18 | disposition home or self-care (01) ==
LOC: HO.MANLDS 10:17
PROVIDERS: Visit Provider Internal Medicine
DX: E11.9 Type 2 diabetes mellitus without complications (principal); E78.5 Hyperlipidemia, unspecified
CPT/HCPCS: 36415; 80053; 80061; 83036; 85025